=== PATIENT | female | born 1995 | race Caucasian/White ===

== ENCOUNTER 2023-11-28 09:50 | Observation (INO) | payer OTHER, MEDICAID, SELFPAY ==
--- NOTE | ~2023-11-28 | US_ITS ---
EXAMINATION: US renal BI DATE: 11/28/2023 12:01 INDICATION: Upper abdominal pain. . TECHNIQUE: Multiple ultrasound grayscale images of the kidneys were obtained. COMPARISON: None. FINDINGS: The right kidney measures 13.4 x 5.8 x 5.1 cm. The left kidney measures 13.7 x 5.8 x 3.8 cm. The kidn eys demonstrate normal parenchymal echogenicity. There is mild bilateral hydronephrosis. The bladder is normal. IMPRESSION: 1. Mild bilateral hydronephrosis. Reviewed, dictated and finalized at location A.
[2023-11-28 09:37] VITALS: BP 134/71; PULSE 109; RESP 15; TEMP 36.6; O2SAT 100
--- NOTE | 2023-11-28 09:46 | PC.NURSE ---
RN called OB and informed them of pt arrival to ED. Pt taken to OB via wheelchair by tech
[2023-11-28 10:45] VITALS: BMI 39.3
--- NOTE | 2023-11-28 10:45 | OBADM ---
This patient, Anita Brunson, admitted to the OB room [facility] for observation. Patient/family oriented to hospital policies and general routines including ID bracelet, bed and alarms, visiting hours, pain management, procedures, bathroom and other care routines, personal items, smoking policy, room service/diet, and visiting hours. Patient/Family are encouraged to report perceived risks to care and to ask questions if they do not understand what they are told or what they should do.
[2023-11-28 11:14] LABS: Add Urine Microscopic? YES; Appearance Urine Cloudy (Clear); Bacteria Urine 4+ /hpf; Bilirubin Urine Negative (Negative); Blood Urine 3+ (Negative); Color Urine Yellow (Yellow); Glucose Urine UA Negative (Negative); Ketones Urine Trace mg/dL (Negative); Leukocyte Esterase Ur Trace LEU/UL (Negative); Nitrate Urine Negative (Negative); Protein Urine 1+ mg/dL (Negative); RBC Urine >100 /hpf (0-2); Specific Grav Ur 1.019 (1.001-1.035); Squamous Epithelial Cell Urine Moderate /hpf (Few); pH Urine 6.5 (5.0-9.0)
[2023-11-28 11:23] VITALS: BP 116/65; PULSE 94
--- NOTE | 2023-11-28 11:34 | PC.NURSE ---
Dr. Travis notified of patient's arrival on unit with complaints of abdominal pain and cramping. Dr. Travis also notified of urine results. Orders received to order a renal ultrasound and treat UTI with Macrobid.
[2023-11-28] MEDS: NITROFURANTOIN MONOHYD MACROCR 100 MG CAP PO (12:00)
--- NOTE | 2023-11-28 12:25 | PC.NURSE ---
Dr. Travis updated on US results, discharge home with antibiotics
--- NOTE | 2023-12-16 10:11 | P.PNOB_ITS ---
OB - Triage/Final Diagnosis Visit Information Comments/Additional reasons for admission: I have assessed the risk for this patient, Anita Brunson, and determined that she would benefit from observation care. Evaluation Laboratory results: Laboratory Tests 11/28/23 10:20 Urine Color Yellow Urine Appearance Cloudy H Urine pH 6.5 Ur Specific [place] 1.019 Urine Protein 1+ H Urine Glucose (UA) Negative Urine Ketones Trace H Ur Blood (Man) 3+ H Urine Nitrate Negative Urine Bilirubin Negative Urine Urobilinogen 1.0 Leukocyte Esterase Rfl Trace H Urine RBC >100 H Urine WBC 6-10 H Ur Squamous Epith Cells Moderate Urine Bacteria 4+ H Urine Casts 3-5 Final Diagnosis (1) Abdominal pain affecting : Code(s): O26.899 - Other specified related conditions, unspecified trimester; R10.9 - Unspecified abdominal pain Status: Acute
== END 2023-11-28 12:39 | disposition home or self-care (01) ==
PROVIDERS: Admitting Provider Obstetrics & Gynecology; PCP Obstetrics & Gynecology; Visit Provider Obstetrics & Gynecology
DX: O26.892 Other specified pregnancy related conditions, second trimester (principal); R10.9 Unspecified abdominal pain; Z3A.22 22 weeks gestation of pregnancy
CPT/HCPCS: 76775; 81001; 87086; 87088; A9270; G0378; G0379

== ENCOUNTER 2024-02-07 11:19 | Emergency (ER) | payer OTHER, MEDICAID, SELFPAY ==
[2024-02-07 11:28] VITALS: BP 122/75; PULSE 105; RESP 20; TEMP 36.6; O2SAT 100
[2024-02-07 11:38] VITALS: O2SAT 99
[2024-02-07 11:40] VITALS: BP 121/81; PULSE 106; RESP 18; O2SAT 99
--- NOTE | 2024-02-07 11:46 | ED_ITS ---
HPI - Abdominal Pain General Chief Complaint: Abdominal Pain Stated Complaint: lightheaded, R sided abd pain, 33 weeks Time Seen by Provider: 02/07/24 11:35 History of Present Illness HPI narrative: Patient is a 28-year-old female who presents to the ER with abdominal pain. She is approximately 33 weeks and started experiencing right UE mid abdominal a pain yesterday that was sharp. patient reports she also felt nauseated at that time. Last night patient reports she started having contractions every 6 minutes but these only lasted for an hour and has subsided since then. Patient denies any urinary symptoms, her last bowel movement was last night and it was normal for her. Patient reports she has a history of kidney stones during her 1st . She carried her 1st to term and had a vaginal delivery. Patient endorses shortness of breath that increases with standing. Related Data Home Medications Medication Instructions Recorded Confirmed B6 1.7 mg-folic 400 mcg-B12 2.4 cap PO 10/08/23 01/09/24 [id number] oral capsule docosahexaenoic acid 200 mg mg PO 10/08/23 01/09/24 capsule ( DHA) doxylamine succinate 25 mg tablet 25 mg PO QHS PRN 10/08/23 01/09/24 (Unisom (doxylamine)) ondansetron HCl 4 mg tablet 4 mg PO Q8H 10/08/23 01/09/24 Allergies Allergy/AdvReac Type Severity Reaction Status Date / Time No Known Allergies Allergy Verified 01/21/24 14:32 Review of Systems Review of Systems: All systems reviewed & are unremarkable except as noted in HPI and below PMFSH Social History Social History Smoking status: Never smoker Alcohol intake: never Substance use: never Substance use type: does not use Living arrangements: with family Gender identity (if verbalized by the patient): Female Sexual Orientation (if Verbalized by the Patient): Straight or Heterosexual Exam Narrative: GENERAL: Well appearing, well-nourished, non-toxic, in no acute distress. HEAD: Normocephalic, atraumatic. NECK: Supple. No adenopathy, no masses. RESPIRATORY: Airway patent, respirations nonlabored. Clear to auscultation bilaterally, no rales, rhonchi, wheezing. CARDIOVASCULAR: Regular rate and rhythm without murmurs, rubs, or gallops. Peripheral pulses 2+ and equal bilaterally. ABDOMINAL: Soft, nontender, nondistended, no hepatosplenomegaly. Normoactive BS. MUSCULOSKELETAL: Moves all extremities. Strength/ROM intact without gross deformities. SKIN: Warm, dry, normal color. No rashes. NEURO: A&O X3. Speech clear. Cranial nerves II-XII grossly intact. No ataxic movements. PSYCHIATRIC: Appropriate mood and affect. Normal interaction. Course Consultations Consultation #1: Serge Spear NP, advised [facility] Date: 02/07/24 Time: 14:00 Vital Signs Vital signs: Vital Signs Temperature 36.6 C 02/07/24 11:28 Pulse Rate 105 H 02/07/24 11:28 Respiratory Rate 20 02/07/24 11:28 Blood Pressure 122/75 02/07/24 11:28 Pulse Oximetry 100 02/07/24 11:28 Oxygen Delivery Room Air 02/07/24 11:28 Temperature 36.6 C 02/07/24 11:28 Pulse Rate 97 02/07/24 12:30 Respiratory Rate 16 02/07/24 12:30 Blood Pressure 134/68 02/07/24 12:30 Pulse Oximetry 100 02/07/24 12:30 Oxygen Delivery Room Air 02/07/24 11:28 MDM - Abdominal Pain MDM Narrative Medical decision making narrative: Patient is a 28-year-old female who presents to the ER with abdominal pain. She is approximately 33 weeks and started experiencing right UE mid abdominal a pain yesterday that was sharp. patient reports she also felt nauseated at that time. Last night patient reports she started having contractions every 6 minutes but these only lasted for an hour and has subsided since then. Patient denies any urinary symptoms, her last bowel movement was last night and it was normal for her. Patient reports she has a history of kidney stones during her 1st . She carried her 1st to term and had a vaginal delivery. Patient endorses shortness of breath that increases with standing. Labs Ordered: urinalysis, CMP, troponin, CBC, BNP, PTT, INR, COVID Imaging Ordered: EKG Results: patient CBC and CMP results were unremarkable except for some mild dehydration. Her urinalysis indicated a UTI. Pt's heart rate was in the 1 30s-140s. EKG was WNL. Diagnosis: urinary tract infection, dehydration Consults: OBGYN Plan: Patient given 1 L normal saline IV bolus to help treat her dehydration. She will be given a dose of oral antibiotics here and sent home with a prescription for oral antibiotics to treat her UTI. Spoke with patient's OBGYN who advised [facility]. Results shared with patient. She and her significant other verbalized understanding and are in agreement with plan. Differential Diagnosis Differential diagnosis: Likely abdominal pain, calculus of kidney, gastroenteritis and other (COVID, influenza) Lab Data Attestation: I reviewed the patient's lab results. 02/07/24 11:59 02/07/24 11:59 Labs: Lab Results 02/07/24 02/07/24 02/07/24 Range/Units 11:59 11:59 11:59 WBC 8.6 (4.5-10.0) K/mm3 RBC 3.49 L (4.2-5.4) M/mm3 Hgb 10.1 L (12.0-15.0) g/dL Hct 30.0 L (37.0-47.0) % MCV 86.0 (80-100) fl MCH 28.9 (26-34) pg MCHC 33.7 (32-36) g/dl RDW 13.5 (11.5-14.5) % Plt Count 261 (150-375) k/mm3 MPV 11.2 H (7.4-10.4) fl Immature Gran % (Auto) 0.7 H (0-0.5) % Neut % (Auto) 71.2 (45.5-73.1) % Lymph % (Auto) 20.2 (18.3-44.2) % [place] % (Auto) 7.6 (2.6-8.5) % Eos % (Auto) 0.0 (0-4.4) % Baso % (Auto) 0.3 (0.2-1.2) % Lymph # (Auto) 1.74 (0.9-3.2) K/mm3 [place] # (Auto) 0.7 H (0.1-0.6) K/mm3 Eos # (Auto) 0.0 (0-0.3) K/mm3 Baso # (Auto) 0.0 (0.0-0.1) K/mm3 Abs Immat Gran (auto) 0.06 H (0.00-0.031) K/mm3 Absolute Neuts (auto) 6.1 (1.3-6.7) K/mm3 Absolute Nucleated RBC 0.000 (0.0-0.012) K/mm3 Nucleated RBC % 0.0 (0.0-0.2) % PT 13.8 (11.1-14.7) Seconds INR 1.0 APTT 27.4 (22.3-36.8) Seconds Sodium 135 L (137-145) mmol/L Potassium 3.5 (3.4-5.0) mmol/L Chloride 105 (98-107) mmol/L Carbon Dioxide 20 L (22-30) mmol/L Anion Gap 10 (4-12) mmol/L BUN 5 L (7-17) mg/dL Creatinine 0.40 L (0.7-1.0) mg/dL Estim Creat Clear Calc 203 ml/min Estimated GFR > 60 (59 - ) Glucose 109 (65-110) mg/dL Calcium 8.9 (8.4-10.2) mg/dL Total Bilirubin 0.5 (0.2-1.3) mg/dL AST 16 (14-36) U/L ALT 10 (6-35) U/L Alkaline Phosphatase 102 (38-126) U/L Troponin I < 0.012 (0.000-0.034) ng/mL NT-Pro-B Natriuret Pep < 20 Cancelled (19.9-100) pg/mL Total Protein 8.0 (6.3-8.2) g/dL Albumin 3.8 (3.5-5.1) g/dL Lipase 69 Cancelled (23-300) U/L Urine Color (Yellow) Urine Appearance (Clear) Urine pH (5.0-9.0) Ur Specific [place] (1.001-1.035) Urine Protein (Negative) mg/dL Urine Glucose (UA) (Negative) mg/dL Urine Ketones (Negative) mg/dL Ur Blood (Man) (Negative) Urine Nitrate (Negative) Urine Bilirubin (Negative) Urine Urobilinogen (<2.0) mg/dL Leukocyte Esterase Rfl (Negative) LALO/UL Urine RBC (0-2) /hpf Urine WBC (0-3) /hpf Ur Squamous Epith Cells (Few) /hpf Urine Bacteria /hpf Urine Casts Influenza A (RT-PCR) Negative (Negative) Influenza B (RT-PCR) Negative (Negative) RSV (RT-PCR) Negative (Negative) SARS-CoV-2 RNA (RT-PCR) Negative (Negative) 02/07/24 Range/Units 13:02 WBC (4.5-10.0) K/mm3 RBC (4.2-5.4) M/mm3 Hgb (12.0-15.0) g/dL Hct (37.0-47.0) % MCV (80-100) fl MCH (26-34) pg MCHC (32-36) g/dl RDW (11.5-14.5) % Plt Count (150-375) k/mm3 MPV (7.4-10.4) fl Immature Gran % (Auto) (0-0.5) % Neut % (Auto) (45.5-73.1) % Lymph % (Auto) (18.3-44.2) % [place] % (Auto) (2.6-8.5) % Eos % (Auto) (0-4.4) % Baso % (Auto) (0.2-1.2) % Lymph # (Auto) (0.9-3.2) K/mm3 [place] # (Auto) (0.1-0.6) K/mm3 Eos # (Auto) (0-0.3) K/mm3 Baso # (Auto) (0.0-0.1) K/mm3 Abs Immat Gran (auto) (0.00-0.031) K/mm3 Absolute Neuts (auto) (1.3-6.7) K/mm3 Absolute Nucleated RBC (0.0-0.012) K/mm3 Nucleated RBC % (0.0-0.2) % PT (11.1-14.7) Seconds INR APTT (22.3-36.8) Seconds Sodium (137-145) mmol/L Potassium (3.4-5.0) mmol/L Chloride (98-107) mmol/L Carbon Dioxide (22-30) mmol/L Anion Gap (4-12) mmol/L BUN (7-17) mg/dL Creatinine (0.7-1.0) mg/dL Estim Creat Clear Calc ml/min Estimated GFR (59 - ) Glucose (65-110) mg/dL Calcium (8.4-10.2) mg/dL Total Bilirubin (0.2-1.3) mg/dL AST (14-36) U/L ALT (6-35) U/L Alkaline Phosphatase (38-126) U/L Troponin I (0.000-0.034) ng/mL NT-Pro-B Natriuret Pep (19.9-100) pg/mL Total Protein (6.3-8.2) g/dL Albumin (3.5-5.1) g/dL Lipase (23-300) U/L Urine Color Yellow (Yellow) Urine Appearance Cloudy H (Clear) Urine pH 6.5 (5.0-9.0) Ur Specific [place] 1.015 (1.001-1.035) Urine Protein Negative (Negative) mg/dL Urine Glucose (UA) Negative (Negative) mg/dL Urine Ketones 1+ H (Negative) mg/dL Ur Blood (Man) Negative (Negative) Urine Nitrate Negative (Negative) Urine Bilirubin Negative (Negative) Urine Urobilinogen 0.2 (<2.0) mg/dL Leukocyte Esterase Rfl 1+ H (Negative) LALO/UL Urine RBC 3-5 H (0-2) /hpf Urine WBC 11-20 H (0-3) /hpf Ur Squamous Epith Cells Few (Few) /hpf Urine Bacteria 4+ H /hpf Urine Casts 0-2 Influenza A (RT-PCR) (Negative) Influenza B (RT-PCR) (Negative) RSV (RT-PCR) (Negative) SARS-CoV-2 RNA (RT-PCR) (Negative) Discharge Plan Discharge Clinical Impression: Abdominal pain affecting , Urinary tract infection Patient Disposition: Home, Self-Care Condition: Stable Instructions: Antibiotic Form, Abdominal Pain (ED), Urinary Tract Infection in (ED) Prescriptions: No Action [id number] 1.7 mg-400 mcg- 2.4 mcg capsule PO Unisom (doxylamine) 25 mg tablet 25 mg PO QHS PRN ondansetron HCl 4 mg tablet 4 mg PO Q8H DHA 200 mg capsule PO Follow-up/Referrals: Berto Travis MD [Primary Care Provider] -
--- NOTE | 2024-02-07 11:54 | ECG_ITS ---
Test Date: 2024-02-07 12:10:14 Measurements Intervals [place] Rate: 91 P: 22 PA: 172 QRS: 23 QRSD: 93 T: 11 QT: 375 QTc: 462 Interpretive Statements SINUS RHYTHM BORDERLINE ST-T WAVE ABNORMALITY- ANTERIOR LEADS BORDERLINE ECG No previous ECG available for comparison Electronically Signed On 02-07-2024 12:18:13 TECHNICAL SERVICES MANAGER by Dick Bangura D.O.
[2024-02-07] MEDS: SODIUM CHLORIDE 0.9% IV 1,000 ML 999 ML IV CONT (11:57)
[2024-02-07 12:12] LABS: Basophils Percent Auto 0.3 % (0.2-1.2); Hemoglobin 10.1 g/dL (12.0-15.0); Immature Granulocyte Absolute 0.06 K/mm3 (0.00-0.031); Immature Granulocyte Percent A 0.7 % (0-0.5); Lymphocytes Absolute Auto 1.74 K/mm3 (0.9-3.2); Lymphocytes Percent Auto 20.2 % (18.3-44.2); Mean Corpuscular HGB Conc 33.7 g/dl (32-36); Mean Corpuscular Hemoglobin 28.9 pg (26-34); Mean Platelet Volume 11.2 fl (7.4-10.4); Monocytes Absolute Auto 0.7 K/mm3 (0.1-0.6); Monocytes Percent Auto 7.6 % (2.6-8.5); Neutrophils Absolute Auto 6.1 K/mm3 (1.3-6.7); Neutrophils Percent Auto 71.2 % (45.5-73.1); Platelet Count Result 261 k/mm3 (150-375); Red Blood Count 3.49 M/mm3 (4.2-5.4); Red Cell Distribution Width 13.5 % (11.5-14.5); White Blood Count 8.6 K/mm3 (4.5-10.0)
[2024-02-07 12:27] LABS: Partial Thromboplastin Time 27.4 Seconds (22.3-36.8); Prothrombin Time 13.8 Seconds (11.1-14.7)
[2024-02-07 12:30] VITALS: BP 134/68; PULSE 97; RESP 16; O2SAT 100
[2024-02-07 12:31] LABS: Alanine Aminotransferase 10 U/L (6-35); Albumin Level 3.8 g/dL (3.5-5.1); Alkaline Phosphatase 102 U/L (38-126); Anion Gap 10 mmol/L (4-12); Aspartate Amino Transferase 16 U/L (14-36); Bilirubin,Total 0.5 mg/dL (0.2-1.3); Blood Urea Nitrogen 5 mg/dL (7-17); Calcium 8.9 mg/dL (8.4-10.2); Carbon Dioxide 20 mmol/L (22-30); Chloride 105 mmol/L (98-107); Estimated CRCL calculation 203 ml/min; Estimated Glomerular Filt Rate > 60; Glucose 109 mg/dL (65-110); Lipase 69 U/L (23-300); Potassium 3.5 mmol/L (3.4-5.0); Sodium 135 mmol/L (137-145)
[2024-02-07 12:42] LABS: NT Pro B Type Natriuretic Pept < 20 pg/mL (19.9-100); Troponin I < 0.012 ng/mL (0.000-0.034)
[2024-02-07 12:49] LABS: Influenza A QL RT-PCR Negative (Negative); Influenza B QL RT-PCR Negative (Negative); RSV RNA, RT-PCR Negative (Negative); SARS-CoV-2 RNA PCR Negative (Negative)
[2024-02-07 13:16] LABS: Add Urine Microscopic? YES; Appearance Urine Cloudy (Clear); Bacteria Urine 4+ /hpf; Bilirubin Urine Negative (Negative); Blood Urine Negative (Negative); Color Urine Yellow (Yellow); Glucose Urine UA Negative (Negative); Ketones Urine 1+ mg/dL (Negative); Leukocyte Esterase Ur 1+ LEU/UL (Negative); Nitrate Urine Negative (Negative); Non Pathogenic Casts 0-2; Protein Urine Negative (Negative); Specific Grav Ur 1.015 (1.001-1.035); Squamous Epithelial Cell Urine Few /hpf (Few); Urobilinogen Urine 0.2 mg/dL (<2.0); pH Urine 6.5 (5.0-9.0)
[2024-02-07] MEDS: NITROFURANTOIN MONOHYD MACROCR 100 MG CAP PO (14:22)
--- NOTE | 2024-02-07 14:27 | PC.NURSE ---
Arrived in Ed department from OB for monitoring right as ED was ready to discharge pt. Pt allowed to void and then taken to recliner for NST.
[2024-02-07 14:29] VITALS: BP 114/74; PULSE 85; RESP 18; O2SAT 100
[2024-02-07 15:00] VITALS: BP 117/64; PULSE 97
== END 2024-02-07 14:31 | disposition home or self-care (01) ==
PROVIDERS: Emergency Provider Registered Nurse; PCP Obstetrics & Gynecology
DX: O23.43 Unspecified infection of urinary tract in pregnancy, third trimester (principal); N39.0 Urinary tract infection, site not specified; Z3A.33 33 weeks gestation of pregnancy; R10.9 Unspecified abdominal pain; Z20.822 Contact with and (suspected) exposure to COVID-19
CPT/HCPCS: 36415; 80053; 81001; 83690; 83880; 84484; 85025; 85610; 85730; 87086; 87637; 93005; 96360; 99284; A9270; J7030

== ENCOUNTER 2024-02-18 15:38 | Outpatient (CLI) | payer OTHER, MEDICAID, SELFPAY ==
[2024-02-18 15:53] LABS: Basophils Absolute Auto 0.1 K/mm3 (0.0-0.1); Basophils Percent Auto 0.5 % (0.2-1.2); Hematocrit 30.9 % (37.0-47.0); Immature Granulocyte Absolute 0.13 K/mm3 (0.00-0.031); Immature Granulocyte Percent A 1.4 % (0-0.5); Lymphocytes Absolute Auto 1.98 K/mm3 (0.9-3.2); Lymphocytes Percent Auto 21.1 % (18.3-44.2); Mean Corpuscular HGB Conc 32.4 g/dl (32-36); Mean Corpuscular Hemoglobin 28.2 pg (26-34); Mean Platelet Volume 10.6 fl (7.4-10.4); Monocytes Absolute Auto 1.1 K/mm3 (0.1-0.6); Monocytes Percent Auto 11.5 % (2.6-8.5); Neutrophils Absolute Auto 6.2 K/mm3 (1.3-6.7); Neutrophils Percent Auto 65.5 % (45.5-73.1); Platelet Count Result 245 k/mm3 (150-375); Red Blood Count 3.55 M/mm3 (4.2-5.4); Red Cell Distribution Width 14.3 % (11.5-14.5); White Blood Count 9.4 K/mm3 (4.5-10.0)
[2024-02-18 16:44] LABS: HIV 1/2 Ab P24 Ag Result Negative (Negative)
[2024-02-19 09:29] LABS: Rapid Plasma Reagin Non-Reactive (NonReactive)
== END 2024-02-18 15:39 | disposition home or self-care (01) ==
LOC: ANHLAB 15:40
PROVIDERS: PCP Family Medicine; Visit Provider Obstetrics & Gynecology
DX: Z34.90 Encounter for supervision of normal pregnancy, unspecified, unspecified trimester (principal)
CPT/HCPCS: 36415; 85025; 86592; 86703; G0432

== ENCOUNTER 2024-04-02 15:27 | Inpatient (IN) | payer OTHER, SELFPAY ==
[2024-04-02] VITALS (62 sets, daily range): BP systolic 119–150; BP diastolic 49–98; PULSE 94–136; RESP 18; TEMP 36.4–37.2; O2SAT 86–100; BMI 43.9
--- NOTE | 2024-04-02 16:54 | LDADM ---
This patient, Anita Brunson, was admitted to Labor/Delivery/Recovery 105 on 04/02/24 at 15:27. Plans for labor, pain management and were discussed with patient. Patient/family oriented to hospital policies and general routines including ID bracelet, bed and alarms, visiting hours, pain management, procedures, bathroom and other care routines, personal items, smoking policy, room service/diet and guest tray routines, infant security routines, and visiting hours. Patient/Family are encouraged to report perceived risks to care and to ask questions if they do not understand what they are told or what they should do. See OBIX for further documentation.
[2024-04-02 17:19] LABS: Basophils Percent Auto 0.3 % (0.2-1.2); Hemoglobin 10.7 g/dL (12.0-15.0); Immature Granulocyte Absolute 0.07 K/mm3 (0.00-0.031); Immature Granulocyte Percent A 0.7 % (0-0.5); Lymphocytes Absolute Auto 1.76 K/mm3 (0.9-3.2); Lymphocytes Percent Auto 16.9 % (18.3-44.2); Mean Corpuscular HGB Conc 33.4 g/dl (32-36); Mean Corpuscular Volume 83.8 fl (80-100); Mean Platelet Volume 11.2 fl (7.4-10.4); Monocytes Absolute Auto 0.8 K/mm3 (0.1-0.6); Monocytes Percent Auto 8.1 % (2.6-8.5); Neutrophils Absolute Auto 7.7 K/mm3 (1.3-6.7); Platelet Count Result 245 k/mm3 (150-375); Red Blood Count 3.82 M/mm3 (4.2-5.4); Red Cell Distribution Width 14.9 % (11.5-14.5); White Blood Count 10.4 K/mm3 (4.5-10.0)
[2024-04-02] MEDS: OXYTOCIN 30 UNITS/NS 500 ML 30 UNITS/500 ML BAG IV CONT (17:30)
[2024-04-02] MEDS: LACTATED RINGERS 1,000 ML 125 ML IV CONT ×2 (17:30→21:33)
[2024-04-02 17:34] LABS: Alanine Aminotransferase 9 U/L (6-35); Albumin Level 3.5 g/dL (3.5-5.1); Alkaline Phosphatase 152 U/L (38-126); Anion Gap 9 mmol/L (4-12); Aspartate Amino Transferase 15 U/L (14-36); Bilirubin,Total 0.4 mg/dL (0.2-1.3); Blood Urea Nitrogen 8 mg/dL (7-17); Calcium 9.2 mg/dL (8.4-10.2); Carbon Dioxide 20 mmol/L (22-30); Chloride 107 mmol/L (98-107); Estimated CRCL calculation 178 ml/min; Estimated Glomerular Filt Rate > 60; Glucose 86 mg/dL (65-110); Potassium 3.9 mmol/L (3.4-5.0); Sodium 136 mmol/L (137-145); Uric Acid 4.1 mg/dL (2.5-7.5)
[2024-04-02 18:27] LABS: HIV 1/2 Ab P24 Ag Result Negative (Negative)
--- NOTE | 2024-04-02 19:02 | PM.IMHP ---
H&P: HPI History of Present Illness Date/Time: 04/02/24 19:02 Chief Complaint: Contractions Narrative: She was having increase contractions since 3pm. Cervical exam in the office was 3-4. She had irregular contractions on L and D which she was sent to for her surveillance testing. Initially blood pressures were elevated. She denied PIH symptoms. Cervical exam 5/70/-2. She had SROM with checking at 1650. She was admitted in active labor. PNC significant for BMI >40 which she was getting surveillance testing for. GBS neg. Review of Systems Review of Systems: All systems reviewed & are unremarkable except as noted in HPI and below Constitutional: Constitutional: Reports no additional constitutional complaints and Denies headache(s) Eyes: Eyes: Denies spots in vision ENT: Reports system reviewed and no additional complaints, except as documented and Denies headache(s) Cardiovascular: Cardiovascular: Denies chest pain and Denies dyspnea Respiratory: Respiratory: Denies dyspnea Gastrointestinal: Gastrointestinal: Reports no additional gastrointestinal complaints Genitourinary: Genitourinary: Reports amenorrhea Musculoskeletal: Musculoskeletal: Reports no additional musculoskeletal complaints Integumentary/Breasts: Skin/Breast: Denies breast mass and Denies rash Neurologic: Denies headache(s) Psychiatric: Psychiatric: Reports no additional psychiatric complaints PMFSH Past Medical History Medical History Migraines, neuralgic IUP (intrauterine ), incidental Morbid obesity Renal calculi Depression Anxiety Family History Family History Father Lung cancer Grandparent Lung cancer Social History Social History Smoking status: Former smoker Tobacco type: e-cigarettes/vaping Alcohol intake: never Substance use: never Substance use type: does not use Do You Feel Safe in your Home?: Yes Lack of Transportation: No Lack of Food: Never True Current Housing: I Have Housing Concerned About Future Housing: No Difficulty Paying Gas/Electric Bills: No Difficulty Paying for Meds: No Currently Unemployed: No Education: High School Diploma/GED Difficulty w/ Childcare or Family Care: No Living arrangements: with family Gender identity (if verbalized by the patient): Female Sexual Orientation (if Verbalized by the Patient): Straight or Heterosexual Spiritual care concerns: No Meds Home Medications and Allergies Home Medications ?Medication ?Instructions ?Recorded ?Confirmed ?Type docosahexaenoic acid 200 mg 200 mg PO DAILY 10/08/23 04/02/24 History capsule ( DHA) Allergies Allergy/AdvReac Type Severity Reaction Status Date / Time No Known Allergies Allergy Verified 04/02/24 17:34 Vital Signs Vital Signs - 24 hr 04/02/24 16:53 04/02/24 17:13 04/02/24 17:30 Temperature 98.9 F Pulse Rate 103 H 106 H Respiratory Rate 18 Blood Pressure 123/77 124/80 Oxygen Delivery Room Air 04/02/24 18:00 04/02/24 18:15 04/02/24 18:30 Temperature 97.6 F Pulse Rate 105 H 117 H Respiratory Rate Blood Pressure 126/79 130/87 Oxygen Delivery 04/02/24 18:31 04/02/24 19:00 Temperature Pulse Rate 107 H Respiratory Rate Blood Pressure 146/81 H Oxygen Delivery Room Air Exam Const: General: no acute distress Eyes: General: appearance normal, both eyes and all related structures Resp: Effort & Inspection: normal respiratory effort Cardio: Rate: regular rate GI: Other: Gravid no fundal tenderness no right upper quadrant pain Skin: General skin exam: no rashes or lesions noted Neuro: Cognition (Neuro): normal cognition Extrem: General: normal to inspection Psych: Mental Status: mental status grossly normal H&P: Results Labs Labs: Short CBC 04/02/24 Range/Units 16:52 WBC 10.4 H (4.5-10.0) K/mm3 Hgb 10.7 L (12.0-15.0) g/dL Hct 32.0 L (37.0-47.0) % Plt Count 245 (150-375) k/mm3 BMP 04/02/24 16:52 Sodium 136 L Potassium 3.9 Chloride 107 Carbon Dioxide 20 L BUN 8 Creatinine 0.49 L Glucose 86 Calcium 9.2 Liver Function 04/02/24 Range/Units 16:52 Total Bilirubin 0.4 (0.2-1.3) mg/dL AST 15 (14-36) U/L ALT 9 (6-35) U/L Alkaline Phosphatase 152 H (38-126) U/L Albumin 3.5 (3.5-5.1) g/dL Assessment and Plan Assessment and plan (1) Active labor: Status: Acute Assessment and Plan: 1. Admit 2. Expectant management, pitocin augmentation if needed.
[2024-04-02 19:55] LABS: Rapid Plasma Reagin Non-Reactive (NonReactive)
--- NOTE | 2024-04-02 20:32 | WPDANESEPP ---
Anes - Eval Pre Procedure Procedure: labor epidural Date/Time: 04/02/24 20:32 Surgeon: justin Preop Diagnosis: pain during labor Pre Op Diagnosis: IOL Patient Data Age: 28 Gender: F Height: 1.63 m Weight: 116 kg Last Vital Signs Temp 36.4 C 04/02/24 20:00 Pulse 114 H 04/02/24 20:30 Resp 18 04/02/24 17:13 BP 143/92 H 04/02/24 20:30 O2 Del Method Room Air 04/02/24 18:31 Allergies Allergy/AdvReac Type Severity Reaction Status Date / Time No Known Allergies Allergy Verified 04/02/24 17:34 Home Medications ?Medication ?Instructions ?Recorded ?Confirmed ?Type docosahexaenoic acid 200 mg 200 mg PO DAILY 10/08/23 04/02/24 History capsule ( DHA) Laboratory Tests 04/02/24 04/02/24 16:52 16:52 WBC 10.4 H K/mm3 (4.5-10.0) RBC 3.82 L M/mm3 (4.2-5.4) Hgb 10.7 L g/dL (12.0-15.0) Hct 32.0 L % (37.0-47.0) MCV 83.8 fl (80-100) MCH 28.0 pg (26-34) MCHC 33.4 g/dl (32-36) RDW 14.9 H % (11.5-14.5) Plt Count 245 k/mm3 (150-375) MPV 11.2 H fl (7.4-10.4) Immature Gran % (Auto) 0.7 H % (0-0.5) Neut % (Auto) 74.0 H % (45.5-73.1) Lymph % (Auto) 16.9 L % (18.3-44.2) [place] % (Auto) 8.1 % (2.6-8.5) Eos % (Auto) 0.0 % (0-4.4) Baso % (Auto) 0.3 % (0.2-1.2) Lymph # (Auto) 1.76 K/mm3 (0.9-3.2) [place] # (Auto) 0.8 H K/mm3 (0.1-0.6) Eos # (Auto) 0.0 K/mm3 (0-0.3) Baso # (Auto) 0.0 K/mm3 (0.0-0.1) Abs Immat Gran (auto) 0.07 H K/mm3 (0.00-0.031) Absolute Neuts (auto) 7.7 H K/mm3 (1.3-6.7) Absolute Nucleated RBC 0.000 K/mm3 (0.0-0.012) Nucleated RBC % 0.0 % (0.0-0.2) Sodium 136 L mmol/L (137-145) Potassium 3.9 mmol/L (3.4-5.0) Chloride 107 mmol/L (98-107) Carbon Dioxide 20 L mmol/L (22-30) Anion Gap 9 mmol/L (4-12) BUN 8 mg/dL (7-17) Creatinine 0.49 L mg/dL (0.7-1.0) Estim Creat Clear Calc 178 ml/min Estimated GFR > 60 (59 - ) Glucose 86 mg/dL (65-110) Uric Acid Cancelled 4.1 mg/dL (2.5-7.5) Calcium 9.2 mg/dL (8.4-10.2) Total Bilirubin 0.4 mg/dL (0.2-1.3) AST 15 U/L (14-36) ALT 9 U/L (6-35) Alkaline Phosphatase 152 H U/L (38-126) Total Protein 7.0 g/dL (6.3-8.2) Albumin 3.5 g/dL (3.5-5.1) RPR Non-reactive (NonReactive) HIV 1&2 Ab/P24 Ag 4thGn Negative (Negative) Blood Type A Positive Antibody Screen Negative Patient hx anesthesia problems: none Family hx anesthesia problems: none Results Review: All pre-operative results and documents have been reviewed as part of the pre-operative evaluation. [facility] Past Medical History Medical History (Updated 04/02/24 @ 20:33 by Jaimee Ferreira CRNA) Migraines, neuralgic IUP (intrauterine ), incidental Morbid obesity Renal calculi Depression Anxiety Family History Family History Father Lung cancer Grandparent Lung cancer Social History Social History (Reviewed 04/02/24 @ 14:52 by Angelina Baca [facility]) Smoking status: Former smoker Tobacco type: e-cigarettes/vaping Alcohol intake: never Substance use: never Substance use type: does not use Do You Feel Safe in your Home?: Yes Lack of Transportation: No Lack of Food: Never True Current Housing: I Have Housing Concerned About Future Housing: No Difficulty Paying Gas/Electric Bills: No Difficulty Paying for Meds: No Currently Unemployed: No Education: High School Diploma/GED Difficulty w/ Childcare or Family Care: No Living arrangements: with family Gender identity (if verbalized by the patient): Female Sexual Orientation (if Verbalized by the Patient): Straight or Heterosexual Spiritual care concerns: No Exam Day of Procedure 04/02/24 20:32
[2024-04-03] VITALS (10 sets, daily range): BP systolic 122–142; BP diastolic 64–98; PULSE 88–122; RESP 16–18; TEMP 36.2–37; O2SAT 99–100
--- NOTE | 2024-04-03 00:13 | P.PCNOB_ITS ---
OB - Vaginal Delivery Note Procedure Delivery date: 04/03/24 Delivery augmentation: Pitocin Delivery monitor: External FHT Route of delivery: Episiotomy description: None Specimen: No Quantitative Blood Loss (ml): 150 Anesthesia type: Epidural Disposition: Floor Complications: No immediate complications Narrative: She was admitted in active labor. SROM occurred while checking at time of admission. Light meconium noted. She had pitocin augmentation. She had epidural placed on request. She progressed to complete. She delivered male infant over intact perineum. Nose and mouth suctioned at perineum. Two loose nuchal cords manually reduced. The shoulders and the rest of infant delivered with gentle traction. vigorously crying and placed on maternal abdomen. Peds present. Cord blood and gases obtained. Pitocin started. Placenta delivered spontaneously and intact. Patient tolerated procedure well. [facility] [place] Baby Date of : 04/03/24 Time of : 11:58 Gestational Age by Date: 40 Infant gender: Male Weight (pounds): 9 Weight (ounces): 4 presentation: vertex position: Right Occiput Anterior Placenta delivery description: Spontaneous Cord Vessel Description: 3 Vessels, Nuchal Cord (x2), Loose and Reduced (manually) score one minute: 8 score five minutes: 8
[2024-04-03] MEDS: OXYTOCIN 30 UNITS/NS 500 ML 30 UNITS/500 ML BAG 125 UNITS IV CONT (00:33)
[2024-04-03] MEDS: WITCH HAZEL 40 PADS 1 PAD TOPICAL (00:54)
[2024-04-03] MEDS: BENZOCAINE 20% AER SPR (*SP) 56 GM CAN 1 SPRAY TOPICAL (00:54)
[2024-04-03] MEDS: ACETAMINOPHEN 325 MG TABLET 650 MG PO ×2 (03:40→12:18)
[2024-04-03] MEDS: IBUPROFEN 600 MG TABLET PO ×3 (03:40→18:48)
[2024-04-03] MEDS: MULTIVIT/MIN/PREN/FOL AC/IRON TABLET 1 TAB PO (08:07)
--- NOTE | 2024-04-03 09:00 | PC.NURSE ---
Introductions were made, then consulted with patient to assess needs related to .Mother led the conversation with her?plans to feed?her infant and the?experience so far. She plans to exclusively breastfeed and has difficulty waking for feeds from time to time. Encouraged understanding of the benefits of skin to skin, stimulating with massage touch, changing positions to encourage wakefulness, how to watch for early feeding cues, responsive feeding, feeding on demand (aiming for 8-12 times in 24 hours, about every 2-3 hours), milk production, building/maintaining a milk supply, duration of feeding, signs of adequate intake/output and how to record on the feeding sheet. Mother works well with her infant. Infant was being taken from mother at this time for a circumcision. Mother will call for assistance once is returned to room. Parents voiced understanding of information and will call if there is a request for assistance. Reported to the Primary RN.
--- NOTE | 2024-04-03 09:13 | PM.OBPNVD ---
OB - PN: Subj Subjective Date/time seen: 04/03/24 09:13 Patient comments: pain well controlled, tolerating diet and other (Decreasing lochia.) baby status: doing well OB - PN: Obj Data Labs 04/02/24 16:52 04/02/24 16:52 Labs: Laboratory Results - last 24 hr 04/02/24 04/02/24 16:52 16:52 WBC 10.4 H RBC 3.82 L Hgb 10.7 L Hct 32.0 L MCV 83.8 MCH 28.0 MCHC 33.4 RDW 14.9 H Plt Count 245 MPV 11.2 H Immature Gran % (Auto) 0.7 H Neut % (Auto) 74.0 H Lymph % (Auto) 16.9 L [place] % (Auto) 8.1 Eos % (Auto) 0.0 Baso % (Auto) 0.3 Lymph # (Auto) 1.76 [place] # (Auto) 0.8 H Eos # (Auto) 0.0 Baso # (Auto) 0.0 Abs Immat Gran (auto) 0.07 H Absolute Neuts (auto) 7.7 H Absolute Nucleated RBC 0.000 Nucleated RBC % 0.0 Sodium 136 L Potassium 3.9 Chloride 107 Carbon Dioxide 20 L Anion Gap 9 BUN 8 Creatinine 0.49 L Estim Creat Clear Calc 178 Estimated GFR > 60 Glucose 86 Uric Acid Cancelled 4.1 Calcium 9.2 Total Bilirubin 0.4 AST 15 ALT 9 Alkaline Phosphatase 152 H Total Protein 7.0 Albumin 3.5 RPR Non-reactive HIV 1&2 Ab/P24 Ag 4thGn Negative Blood Type A Positive Antibody Screen Negative OB - PN A/P Plan day: 1 Plan: routine care Comments: Patient doing well. Time Spent With Patient Time: Total time spent is greater than 50% in coordination of care (as documented) at patient's floor/unit and/or counseling patient: Exam Psych: Affect: normal affect Other: Abd: fundus firm below umbilicus, nontender Perineum: healing Ext: nontender
--- NOTE | 2024-04-03 10:00 | PC.NURSE ---
Checked in with mother to assist with feeding. Infant remains sleepy and will not wake for feeding at this time. Mother will do skin to skin and watch for early feeding cues. Mother will call this RN to assist with feeding if needed.
--- NOTE | 2024-04-03 10:29 | WPDANLDPN2 ---
Anes-Prog Note L&D Date/Time: 04/03/24 10:29 Comfortable throughout: labor and delivery Neuraxial method: epidural Epidural/Spinal procedure site: clean & non-tender Neuro status: Neuro function grossly intact. Cardiovascular status: normal Respiratory status: normal Airway patency: baseline Mental status: baseline Post-Op hydration status: normal Vital Signs: Last Vital Signs Temp 36.2 C L 04/03/24 08:10 Pulse 88 04/03/24 08:10 Resp 16 04/03/24 08:10 BP 122/72 04/03/24 08:10 Pulse Ox 99 04/03/24 08:10 O2 Del Method Room Air 04/03/24 02:45 Pain score (VAS): 0 I/O: Intake & Output 04/02/24 04/03/24 04/03/24 23:59 07:59 15:59 Intake Total 1000 Output Total 150 Balance 1000 -150 Post-procedural complaints: none Patient feedback: Patient satisfied with anesthetic care.
--- NOTE | 2024-04-03 14:30 | PC.NURSE ---
Upon entering room, mother states that infant has not had a feeding since 7:30 a.m this morning. Discussed with mother that due to the extended time that infant has gone without feeding and the difficulty to wake , this RN would be checking infants blood sugar. Blood sugar was taken and resulted at 46. Discussed with mother that intervention is needed and blood sugar should be at least 50 or greater which would result in giving glucose gel and supplementation. Mother agrees with POC. was then taken to the nursery and given 2ml glucose gel + 20cc of Enfamil formula. tolerated this feeding well. then returned to mother and mother aware that we will be rechecking infants blood sugar in 30 minutes. Additionally, reiterated with mother that should be feeding every 2-3 hours (on demand) and if she is unable to wake infant for feedings she should call RN or Primary RN for assistance. Mother states understanding.
[2024-04-04] MEDS: ACETAMINOPHEN 325 MG TABLET 650 MG PO ×2 (00:46→11:00)
[2024-04-04] MEDS: IBUPROFEN 600 MG TABLET PO ×2 (00:46→11:00)
[2024-04-04 04:52] VITALS: BP 126/76
[2024-04-04 04:56] LABS: Hematocrit 26.6 % (37.0-47.0); Hemoglobin 8.5 g/dL (12.0-15.0)
[2024-04-04 08:05] VITALS: BP 123/86; PULSE 97; RESP 20; TEMP 36.7; O2SAT 98
--- NOTE | 2024-04-04 08:19 | P.PNOB_ITS ---
OB - PN: Subj Subjective Date/time seen: 04/04/24 09:04 Narrative: PPD#2 Anita reports doing well today. 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 Her pain is controlled. She is tolerating regular diet, voiding, passing gas, and ambulating without issues. She is pumping. She would like to go home today. OB - PN: Obj Data Labs 04/04/24 04:16 04/02/24 16:52 OB - PN A/P Assessment and Plan (1) Vaginal delivery: Code(s): O80 - Encounter for full-term uncomplicated delivery Status: Acute Plan day: 2 Plan: routine care and discharge home Comments: - PO pain meds - Regular diet - Ambulation and hydration encouraged - Continue putting baby to breast q2-3hr - Venofer 500mg IV once - Pelvic rest; take meds as prescribed - ER return precautions: fever, n/v/abd pain, bleeding, HTN Time Spent With Patient Time: Total time spent is greater than 50% in coordination of care (as documented) at patient's floor/unit and/or counseling patient: Review of Systems 2 Constitutional: Constitutional: Denies chills, Denies fever(s) and Denies headache(s) Eyes: Eyes: Denies change in vision ENT: Denies dizziness and Denies headache(s) Cardiovascular: Cardiovascular: Denies chest pain, Denies palpitations and Denies dyspnea Respiratory: Respiratory: Denies cough and Denies dyspnea Gastrointestinal: Gastrointestinal: Denies nausea and Denies vomiting Neurologic: Denies dizziness and Denies headache(s) Endocrine: Endocrine: Denies palpitations Exam 2 Const: General: cooperative, comfortable and no acute distress O rientation/consciousness: patient oriented x3 Resp: Effort & Inspection: normal respiratory effort Auscultation: clear to auscultation bilaterally Cardio: Rate: regular rate GI: Inspection: non-distended GI Palp: No abdominal tenderness and Yes Soft to palpation Auscultation: normal bowel sounds : Other: fundus firm Skin: General skin exam: normal color Neuro: General: patient oriented x3 Extrem: General: normal to inspection Psych: Appearance: grossly normal Affect: normal affect Attitude: c ooperative
--- NOTE | 2024-04-04 09:36 | PC.NURSE ---
Checked in with patient to assist needs related to and see how feeding went overnight. Patient states that bottles were given overnight r/t blood glucose levels. Pumping was not initiated overnight. Patient states that she would like to pump and continue attempting to place to breast. Reiterated the importance of pumping when bottles are given in place of and/or attempts were poor. Patient states understanding. Mom[employer] breastpump brought from home. Instructions given on cleaning, care, usage, that there should be no pain, pumping schedule for milk production, collection, and storage of human milk. Patient was assessed for correct placement, flange size (24mm), to pump for comfort and nipple stretching/stimulation for adequate milk production every 3 hours (8 times in 24 hours) 1-2 times at night. Parents are encouraged to record the pumping schedule on the feeding sheet.?Mother voiced understanding of the education. Reported to the Primary RN.
--- NOTE | 2024-04-04 10:25 | PM.OBDSVD ---
DS: Admitting Diagnosis Discharge Date 04/04/23 <Berto Travis MD - Last Filed: 04/07/24 16:20> Admitting Diagnosis Labor <Berto Travis MD - Last Filed: 04/07/24 16:20> DS: Discharge Diagnosis Discharge Diagnosis (1) Vaginal delivery: Code(s): O80 - Encounter for full-term uncomplicated delivery <Berto Travis MD - Last Filed: 04/07/24 16:20> Status: Acute <Berto Travis MD - Last Filed: 04/07/24 16:20> OB - DS: Summary Hospital Course Hospital Course: She was admitted for active labor. She had an uncomplicated vaginal delivery. She and baby did well . Discharged to home on day 2. <Berto Travis MD - Last Filed: 04/07/24 16:20> OB Procedures : Ultrasound <Berto Travis MD - Last Filed: 04/07/24 16:20> OB Procedures Intrapartum: Spontaneous Vag Delivery <Berto Travis MD - Last Filed: 04/07/24 16:20> OB Procedures: : None <Berto Travis MD - Last Filed: 04/07/24 16:20> Peripartum Data Infant Delivery Method: Natural Vaginal <Berto Travis MD - Last Filed: 04/07/24 16:20> Episiotomy description: None <Berto Travis MD - Last Filed: 04/07/24 16:20> complications: none <Berto Travis MD - Last Filed: 04/07/24 16:20> other (venofer 500mg IV once) <Tanya Mckeon MD - Last Filed: 04/04/24 10:27> [place] 1: Gender: Male <Tanya Mckeon MD - Last Filed: 04/04/24 10:27> Disposition of : home <Tanya Mckeon MD - Last Filed: 04/04/24 10:27> Status at Discharge Functional status at discharge: independent ambulation <Berto Travis MD - Last Filed: 04/07/24 16:20> Time Spent with Patient Time attestation: Total time spent providing and/or coordinating discharge services: <Berto Travis MD - Last Filed: 04/07/24 16:20> Exam Const: General: cooperative <Berto Travis MD - Last Filed: 04/07/24 16:20> General: obese <Tanya Mckeon MD - Last Filed: 04/04/24 10:27> Orientation/consciousness: oriented to person, oriented to place and oriented to time <Berto Travis MD - Last Filed: 04/07/24 16:20> HENMT: Face/Nose/Sinus: Normal external nose present <Berto Travis MD - Last Filed: 04/07/24 16:20> Eyes: General: appearance normal, both eyes and all related structures <Berto Travis MD - Last Filed: 04/07/24 16:20> Resp: Effort & Inspection: normal respiratory effort <Berto Travis MD - Last Filed: 04/07/24 16:20> GI: Inspection: normal to inspection <Berto Travis MD - Last Filed: 04/07/24 16:20> Skin: General skin exam: normal color <Berto Travis MD - Last Filed: 04/07/24 16:20> Neuro: General: oriented to person, oriented to place and oriented to time <Berto Travis MD - Last Filed: 04/07/24 16:20> Extrem: General: normal to inspection and no calf tenderness <Berto Travis MD - Last Filed: 04/07/24 16:20> Psych: Appearance: grossly normal <Berto Travis MD - Last Filed: 04/07/24 16:20> Mental Status: mental status grossly normal <Berto Travis MD - Last Filed: 04/07/24 16:20> DS: Data Data Completed and Pending Labs on day of discharge: Labs from last 24 hours 04/02/24 04/02/24 16:52 16:52 WBC 10.4 H RBC 3.82 L Hgb 10.7 L Hct 32.0 L MCV 83.8 MCH 28.0 MCHC 33.4 RDW 14.9 H Plt Count 245 MPV 11.2 H Immature Gran % (Auto) 0.7 H Neut % (Auto) 74.0 H Lymph % (Auto) 16.9 L [place] % (Auto) 8.1 Eos % (Auto) 0.0 Baso % (Auto) 0.3 Lymph # (Auto) 1.76 [place] # (Auto) 0.8 H Eos # (Auto) 0.0 Baso # (Auto) 0.0 Abs Immat Gran (auto) 0.07 H Absolute Neuts (auto) 7.7 H Absolute Nucleated RBC 0.000 Nucleated RBC % 0.0 Sodium 136 L Potassium 3.9 Chloride 107 Carbon Dioxide 20 L Anion Gap 9 BUN 8 Creatinine 0.49 L Estim Creat Clear Calc 178 Estimated GFR > 60 Glucose 86 Uric Acid 4.1 Cancelled Calcium 9.2 Total Bilirubin 0.4 AST 15 ALT 9 Alkaline Phosphatase 152 H Total Protein 7.0 Albumin 3.5 RPR Non-reactive HIV 1&2 Ab/P24 Ag 4thGn Negative Blood Type A Positive Antibody Screen Negative <Berto Travis MD - Last Filed: 04/07/24 16:20> Discharge Plan Discharge Attending physician on discharge: Berto Travis <Berto Travis MD - Last Filed: 04/07/24 16:20> Berto Travis <Tanya Mckeon MD - Last Filed: 04/04/24 10:27> Consulting providers: Jaimee Ferreira Brittany N. <Berto Travis MD - Last Filed: 04/07/24 16:20> Discharging Clinician: Tanya Mckeon <Berto Travis MD - Last Filed: 04/07/24 16:20> Tanya Mckeon <Tanya Mckeon MD - Last Filed: 04/04/24 10:27> Patient Disposition: Home, Self-Care <Berto Travis MD - Last Filed: 04/07/24 16:20> Activity: may shower and pelvic rest <Berto Travis MD - Last Filed: 04/07/24 16:20> may shower and pelvic rest <Tanya Mckeon MD - Last Filed: 04/04/24 10:27> Diet: regular <Berto Travis MD - Last Filed: 04/07/24 16:20> regular <Tanya Mckeon MD - Last Filed: 04/04/24 10:27> Discharge Instructions: Education: Mom and Baby Guide Given to: Mother Follow-Up: Call your delivering provider's office for an appointment to be seen. Mom and baby should come to the [facility] for the follow-up appointment. Appointment Date/Time: April 07, 2024 at 9:00 am What to expect at your follow-up visit: Physical Assessment Call [phone] if you are unable to keep your appointment time. BREAST CARE: * Wear a snug supportive bra. * For engorgement discomfort: Breast Feeding: * Apply warm moist washcloths * Express milk as needed to relieve engorgement * Wear loose clothing Bottle Feeding: * May apply ice packs * For sore nipples: * Identify correct latch-on * Apply warm moist washcloths before and after nursing * Air dry nipples after nursing * May apply Lansinoh cream to nipples PERINEAL CARE: * Until bleeding stops, use your yang bottle after urinating * Change your pad frequently throughout the day * You may take sitz baths several times a day (fill your bathtub with warm water and soak for 20 minutes.) Do NOT bathe in the water * No tub baths until seen by your physician - You may shower ACTIVITY: * Rest as much as possible. * Do not exercise or lift anything heavier than your baby (such as laundry or other children.) * Avoid stairs or driving as much as possible. * Do not put anything into the vagina. No douching, tampons, or sexual activity until seen by physician. NOTIFY PHYSICIAN IF YOU HAVE ANY QUESTIONS OR IF ANY OF THE FOLLOWING SYMPTOMS OCCUR: * If your perineum becomes red, swollen, or more painful than what you have experienced in the hospital. * If your vaginal bleeding becomes foul smelling. * If your vaginal bleeding becomes more heavy than a period or if your bleeding changes from pink to bright red. However, you may pass an occasional walnut-sized clot once or twice for the first week . * If you experience a sharp, shooting pain in you calves. * If you discover a hard, reddened area on your breast or if you experience flu-like symptoms. DIET: * Eat regular, well-balanced meals. * Drink plenty of fluids daily. <Berto Travis MD - Last Filed: 04/07/24 16:20> Patient Language: Kiswahili <Berto Travis MD - Last Filed: 04/07/24 16:20> Stand Alone Forms: General Discharge Information <Berto Travis MD - Last Filed: 04/07/24 16:20> Follow-up/Referrals: Berto Travis MD [Physician] - Call for Appointment <Berto Travis MD - Last Filed: 04/07/24 16:20> Discharge Medications: New acetaminophen 325 mg Tablet 650 mg PO Q6H PRN (Reason: Mild Pain (1-3) Or Headache) Qty: 60 0RF docusate sodium 100 mg Capsule 100 mg PO BID PRN (Reason: Constipation) Qty: 90 0RF ibuprofen 600 mg Tablet 600 mg PO Q6H PRN (Reason: Cramping) Qty: 40 0RF Continued DHA 200 mg capsule 200 mg PO DAILY <Berto Travis MD - Last Filed: 04/07/24 16:20> Date of admission: 04/02/24 15:27 <Berto Travis MD - Last Filed: 04/07/24 16:20> Primary Care Provider: UNKNOWN,DOCTOR <Berto Travis MD - Last Filed: 04/07/24 16:20> Admitting Provider: Berto Travis <Berto Travis MD - Last Filed: 04/07/24 16:20> Attending physician on admission: Tanya Mckeon <Berto Travis MD - Last Filed: 04/07/24 16:20> Condition: Stable <Berto Travis MD - Last Filed: 04/07/24 16:20>
[2024-04-04] MEDS: IRON SUCROSE COMPLEX 400 MG, IRON SUCROSE COMPLEX 100 MG in SODIUM CHLORIDE 0.9% IV 250 ML 78.57 MG IVPB (10:59)
[2024-04-04] MEDS: MULTIVIT/MIN/PREN/FOL AC/IRON TABLET 1 TAB PO (11:01)
[2024-04-04] MEDS: DOCUSATE SODIUM 100 MG CAPSULE PO (11:01)
[2024-04-04] MEDS: INFLUENZA TRIVALENT VACCINE 45 MCG/0.5 ML SYRINGE IM (13:11)
[2024-04-07 09:33] VITALS: BP 140/84; PULSE 96; RESP 18; TEMP 36.8; O2SAT 100
--- OUTSIDE RECORDS SUMMARY | 2024-04-09 04:11 | XMS_ITS | Clinical Summary ---
Author Organization [facility] Address [address] [place] [address] Phone Care Team Providers [employer] Workflow Consultant Name Role Phone SARAH ESQUIVEL, DENA Primary Care Provider [phone], LINDA Shi Unavailab le Reason for Visit and Chief Complaint The Chief Complaint is: Cough, body aches, headache and congestion for 3 days Problems Includes: Problems addressed during this encounter and other active Problems All Visits Onset Date Resolved Date Provider Condition S tatus Headache Syndromes 07/25/2021 CAN CARBAJAL PA-C Active Last Documented On 2 3:50PM ; [facility] Generalized Anxiety Disorder 07/18/2020 LINDA SHERMAN LCSW Active Last Documented On 1 8:45AM ; [facility] Eating Disorder Binge 11/27/2019 AISHA MARQUEZ PMHNP-BC [employer] REPA[employer]ER-BC Active Last Documented On 0 1:15PM ; [facility] Depression 05/02/2012 DENA SMITH MD Act kate Last Documented On 3 4:17PM ; [facility] Note: Unchanged Nephrolithiasis 01/23/2012 CAN Lozano Active Last Documented On 3 2:47PM ; [facility] Plan of Treatment - Return to the clinic if condition worsens or new symptoms arise - Last Documented On 04/09/2023 9:35AM ; [facility] - Patient will call for appointment as needed - Last Documented On 04/09/2023 9:35AM ; [facility] Assessments Includes: Assessments from this encounter Findings - [J06.9 - Acute upper respiratory infection, unspecified] Upper respiratory infection - Last Documented On 04/09/2023 9:35AM ; [facility] Medical Equipment - Implanted Devices Includes: Current Devices No Medical Equipment Recorded Medications Includes: Medications discussed during this encounter and other current Medications New / Renewed during this visit ANA LILIA VINCENT DNP on 04/09/2023 Medrol 4 MG Oral Tablet Therapy Pack Provider: ANA LILIA Alvarado SLABBER 6 day supply: 1 each, 0 refills Diagnosis: Acute cough as directed Pharmacy: [address], [phone] - Last Documented On 4 2:48PM By CAT MANUEL ; [facility] Medications Administered Includes: Administered Medications from this encounter No Administered Medications Recorded Vital Signs Includes: Vital Signs from this encounter Vital Name 04/09/2023 09:05A Pulse Rate-Sitting (bpm) 67 Temp-Oral (F) 97.9 Height (in) 65 Weight (lb) 213.2 Body Mass Index 35.5 Body Surface Area 2 Oxygen Saturation (%) 97 Last Documented: On 04/09/2023 9:06AM ; [facility] Results Includes: Results discussed during this encounter SARS COVID-19 FLU A & B [facility] Ordered by ANA LILIA VINCENT DNP on Collected: Reported: 04/09/2023 09:13 Last Documented On 4 9:14AM ; [facility] Reviewed on 04/09/2023; All test results are final unless otherwise noted. COVID Negative N (Normal) Last Documented On 4 9:13AM ; [facility] INFLUENZA A Negative (Negative) N (Normal) Last Documented On 4 9:13AM ; [facility] INFLUENZA B Negative (negative) N (Normal) Last Documented On 4 9:13AM ; [facility] INT. QC ACCEPTABLE? yes N (Normal) Last Documented On 4 9:13AM ; [facility] LOT # & EXP. DATE [id number] 02-12-24 N (Normal) Last Documented On 4 9:13AM ; [facility] Group A strep [facility] Ordered by ANA LILIA VINCENT DNP on Collected: Reported: 04/09/2023 09:12 Last Documented On 4 9:14AM ; [facility] Reviewed on 04/09/2023; All test results are final unless otherwise noted. Rapid Strep Negative N (Normal) Last Documented On 4 9:12AM ; [facility] LOT # AND EXP. DATE [id number] 09-25-25 N (Normal) Last Documented On 4 9:12AM ; [facility] INT. QC ACCEPTABLE? yes N (Normal) Last Documented On 4 9:12AM ; [facility] History of Present Illness Includes: History of Present Illness from this encounter HPI ELEAZAR ALDRIDGE is a 27 year old female. - Allergy list reviewed - Medication list reviewed - Previously well - No fever - No chills - Headache associated with head congestion - No sinus pain - No sinus pressure - No swollen glands in the neck - No itching of the eyes - No discharge from the eyes - Nasal discharge - Nasal passage blockage (stuffiness) - Sore throat - No earache - The ears do not feel pressured - The ears do not feel full - No discharge from the ears - No postnasal drip - No sneezing - No itchy throat - No chest pain or discomfort - No palpitations - Feeling congested in the chest - Cough - No dyspnea - No wheezing - Myalgia - No rash Eleazar presents to the clinic with the above reported symptoms that have been going on for the past 3 days now. She denies any known fever or chills but has had body aches. Patient denies any known sick contacts. Social History Description Last Updated Smoking electronic cigarettes 04/09/2023 Last Documented On 4 9:35AM ; [facility] Smoking Status Unknown Procedures and Surgical History Includes: Procedures from this encounter Procedures Code Diagnosis Performing Provider Service L ocation Service Date SARS-CO,SARS-COV-2, INFLUENZA A/B TEST ([facility] WA[facility]) 52384 Acute cough ANA LILIA VINCENT DNP [facility] 04/09/2023 Last Documented On 4 5:18PM ; [facility] STREP TEST SCREENING ([facility]IA WAIVED) 36004 Acute pharyngitis, unspecified ANA LILIA VINCENT DNP [facility] 04/09/2023 Last Documented On 4 5:18PM ; [facility] use of tobacco assessment performed 1000F Last Documented On 4 9:07AM ; [facility] review of medications documented 1160F Last Documented On 4 9:07AM ; [facility] Clinical summary provided to patient Last Documented On 4 9:29AM ; [facility] Medical History Includes: Medical History addressed during this encounter No Medical History Recorded Family History Includes: Family History addressed during this encounter No Family History Recorded Review of Systems Includes: Review of Systems from this encounter Systemic: Feeling poorly (malaise). No fever and no chills. Head: Headache. No sinus pain. Eyes: No itching of the eyes. Otolaryngeal: No earache. Nasal discharge. No hoarseness. Sore throat. Cardiovascular: No chest pain or discomfort. Pulmonary: No dyspnea. Cough. No wheezing. Musculoskeletal: Muscle aches. Skin: No rash. Mental Status Includes: Mental Status from this encounter No Mental Status Recorded Functional Status Includes: Functional Status from this encounter No Functional Status Recorded Physical Exam Includes: Physical Exam from this encounter Allergies Includes: Active Allergies No Known Allergies Encounters Encounter Provider Location Date Check-In Time Check-Out Time Diagnosis COVID SICK VISIT- ESTABLISHED PATIENT ANA LILIA VINCENT DNP [facility] 04/09/19 24 8:53AM 9:29AM Upper Respiratory Infection Insurance Includes: Active Insurance Policies Plan Name Member ID Group # Subscriber Relationship Effect kate Dates 1 - [employer] [id number] ELEAZAR Scanlon 2 - MEDICA[employer] [place] [facility] [id number] ELEAZAR Scanlon Clinical Notes Includes: Clinical Notes from this encounter * Progress note Date Encounter Last Documented by 04/09/2023 COVID SICK VISIT- ESTABLISHED PA TIENT Last documented on 04/09/2023; 9:35 AM, ANA LILIA VINCENT DNP; [facility] Chief Complaint The Chief Complaint is: Cough, body aches, headache and congestion for 3 days. History of Present Illness ELEAZAR ALDRIDGE is a 27 year old female. - Allergy list reviewed - Medication list reviewed - Previously well - No fever - No chills - Headache associated with head congestion - No sinus pain - No sinus pressure - No swollen glands in the neck - No itching of the eyes - No discharge from the eyes - Nasal discharge - Nasal passage blockage (stuffiness) - Sore throat - No earache - The ears do not feel pressured - The ears do not feel full - No discharge from the ears - No postnasal drip - No sneezing - No itchy throat - No chest pain or discomfort - No palpitations - Feeling congested in the chest - Cough - No dyspnea - No wheezing - Myalgia - No rash Eleazar presents to the clinic with the above reported symptoms that have been going on for the past 3 days now. She denies any known fever or chills but has had body aches. Patient denies any known sick contacts. Social History Tobacco use: Smoking electronic cigarettes. Review Of Systems Systemic: Feeling poorly (malaise). No fever and no chills. Head: Headache. No sinus pain. Eyes: No itching of the eyes. Otolaryngeal: No earache. Nasal discharge. No hoarseness. Sore throat. Cardiovascular: No chest pain or discomfort. Pulmonary: No dyspnea. Cough. No wheezing. Musculoskeletal: Muscle aches. Skin: No rash. Physical Findings - Vitals taken 04/09/2023 09:05 am Pulse Rate-Sitting 67 bpm Temp-Oral 97.9 F Height 65 in Weight 213 lbs 3.2 oz Body Mass Index 35.5 kg/m2 Body Surface Area 2 m2 Oxygen Saturation 97 % General Appearance: - Alert. - Well nourished. - In no acute distress. Neck: Suppleness: - Neck demonstrated no decrease in suppleness. Eyes: General/bilateral: Pupils: - PERRLA. Ears: General/bilateral: External Auditory Canal: - External auditory meatus normal. Tympanic Membrane: - Normal. Nose: General/bilateral: Discharge: - Nasal discharge. Cavity: - Nasal turbinate swollen. Sinus Tenderness: - No sinus tenderness. Pharynx: Oropharynx: - Normal. - Tonsils showed no abnormalities. - Tonsils were not erythematous. - Tonsils were not enlarged. Mucosal: - Pharynx showed an accumulation of purulent mucous. Lymph Nodes: - Anterior cervical lymph nodes were not enlarged. - Posterior cervical lymph nodes were not enlarged. Lungs: - Normal breath sounds/voice sounds. - No wheezing was heard. - No rhonchi were heard. Cardiovascular: Heart Rate And Rhythm: - Normal. Musculoskeletal System: General/bilateral: - Overall findings were normal. Skin: - General appearance was normal. - Texture was normal. - Turgor was normal. - Color and pigmentation were normal. - Moisture was normal. - Mucous membranes were not dry. Tests - Test: Group A strep Report Date: 04/09/2023 Rapid Strep Negative Normal LOT # AND EXP. DATE [id number] 09-25-25 Normal INT. QC ACCEPTABLE? yes Normal - Test: SARS COVID-19 FLU A & B Report Date: 04/09/2023 COVID Negative Normal INFLUENZA A Negative Normal INFLUENZA B Negative Normal INT. QC ACCEPTABLE? yes Normal LOT # & EXP. DATE [id number] 02-12-24 Normal Assessment - [J06.9 - Acute upper respiratory infection, unspecified] Upper respiratory infection Therapy - Clinical summary provided to patient. Discussed Testing was negative at today's visit. Take medrol dose pack as directed. Take with food to avoid stomach upset. 1. Increase fluid intake. 2. Rest as much as possible. 3. Encourage use of humidifier- Regularly clean the humidifier so that bacteria does not grow. 4. Encouraged Vitamin C and Zinc to help boost immune system. 5. Cool liquids to soothe the throat, throat sprays, throat lozenges, cool liquids to help soothe the throat. 6. Acetaminophen or ibuprofen as needed for pain/fever. 7. Antihistamine as needed- such as Zyrtec, Claritin, or Benadryl. 8. Normal saline nasal spray or Netti Pot with sterile water as needed. 9. Warm compress to sinus area. 10. Patient voiced understanding to the teaching. Plan StartCited - Acute cough In office procedures/*[facility] Waived Labs: SARS COVID-19 + flu A & B test Medrol 4 MG each as directed, 6 days, 0 refills EndCited StartCited - Acute pharyngitis, unspecified In office procedures/*[facility] Waived Labs: Rapid Strep Test EndCited - Return to the clinic if condition worsens or new symptoms arise - Patient will call for appointment as needed Practice Management Use of tobacco assessment performed Review of medications documented.
--- OUTSIDE RECORDS SUMMARY | 2024-04-09 04:11 | XMS_ITS ---
Care Plan - [facility] Created on: April 09, 2024 LUIS CARLOSELEAZAR : 1995 Sex: Female Author Organization [facility] Address [address] [place] [address] Phone Care Team Providers Care Environmental Health Technician Name Role Phone DENA SMITH MD Primary Care Provider [phone], LINDA [employer]eros le
--- OUTSIDE RECORDS SUMMARY | 2024-04-09 04:11 | XMS_ITS ---
Author Organization [facility] Address [address] [place] [address] Phone Care Team Providers Care Help Desk Rep Name Role Phone DENA SMITH MD Primary Care Provider [phone], LINDA Mcgowan Unavailable Unavailab le Reason for Referral Date Encounter Description Provider Reason for Referral 01/23/11 PROBLEM VISIT DENA SMITH MD Reque st Consultation By Mental Health Counselor Problems Includes: Active, inactive, and resolved Problems All Visits Onset Date Resolved Date Provider Condition S tatus Headache Syndromes 07/25/2021 CAN CARBAJAL PA-C Active Last Documented On 2 3:50PM ; [facility] Generalized Anxiety Disorder 07/18/2020 LINDA SHERMAN LCSW Active Last Documented On 1 8:45AM ; [facility] Eating Disorder Binge 11/27/2019 AISHA MARQUEZ PMHNP-BC SALES ESTIMATOR-BC Active Last Documented On 0 1:15PM ; [facility] Contraceptive Management 10/09/2017 Unknown CAN ROONEY PA-C Resolved Last Documented On 0 11:28AM ; [facility] Note: Unchanged Depression 05/02/2012 DENA SMITH MD Act kate Last Documented On 3 4:17PM ; [facility] Note: Unchanged Nephrolithiasis 01/23/2012 CAN Lozano Active Last Documented On 3 2:47PM ; [facility] Plan of Treatment Findings Encounter Date Ordered patient will call fo r appointment as needed COVID SICK VISIT- ESTABLISHED PATIENT with ANA LILIA VINCENT DNP 04/09/2023 Last Documented On 4 9:35AM ; [facility] Ordered return to the clinic if condition worsens or new symptoms arise COVID SICK VISIT- ESTABLISHED PATIENT with ANA LILIA VINCENT DNP 04/09/2023 Last Documented On 4 9:35AM ; [facility] Muscle relaxers as needed. B utalbital as needed for tension headaches. Local heat to neck, massage. Call sooner if needed. ER if condition severe PROBLEM VISIT with CAN CARBAJAL PA-C 03/05/2023 Last Documented On 3 3:06PM ; [facility] Ordered Clinical summary pro vided to patient . Plan discussed and patient/parent/caregiver states understanding PROBLEM VISIT with CAN CARBAJAL PA-C 03/05/2023 Last Documented On 3 3:06PM ; [facility] Ordered follow-up visit as needed PROBLEM VISIT with CAN CARBAJAL PA-C 03/05/2023 Last Documented On 3 3:06PM ; [facility] Ordered return to the clinic if condition worsens or new symptoms arise PROBLEM VISIT with CAN CARBAJAL PA-C 03/05/2023 Last Documented On 3 3:06PM ; [facility] Ordered follow-up visit as needed with an office visit. Discussed referral to urology in the future if needed. Cont to drink plenty of water, urinate often. Call sooner if needed. ER if condition severe EMERGENCY ROOM FOLLOWUP-ESTABLISHED PT with CAN CARBAJAL PA-C 01/22/2023 Last Documented On 3 3:13PM ; [facility] Continue topamax. Try hydrox yzine at night for sleep and anxiety. Call sooner if needed. ER if condition severe CHECK UP with CAN CARBAJAL PA-C 05/17/2022 Last Documented On 3 4:56PM ; [facility] Ordered Clinical summary pro vided to patient . Plan discussed and patient/parent/caregiver states understanding CHECK UP with CAN CARBAJAL PA-C 05/17/2022 Last Documented On 3 4:56PM ; [facility] Ordered follow-up visit 2-3 mo CHECK UP with JACQUES CARBAJAL PA-C 05/17/2022 Last Documented On 3 4:56PM ; [facility] Ordered return to the clinic if condition worsens or new symptoms arise CHECK UP with CAN CARBAJAL PA-C 05/17/2022 Last Documented On 3 4:56PM ; [facility] Ordered Clinical summary pro vided to patient . Plan discussed and patient/parent/caregiver states understanding PROBLEM VISIT with CAN CARBAJAL PA-C 04/10/2022 Last Documented On 3 3:30PM ; [facility] Ordered follow-up visit in 1 month with an office visit. Get fasting labs anytime. Discussed Ubrelvy or nurtec for abortive meds. Topamax for headache prevention. Pt doesn't want to do Emgality or Aimovig at this time. Declined toradol inj today and ALSTON isn't too severe. Stay hydrated. Call sooner if needed. ER if condition severe PROBLEM VISIT with CAN CARBAJAL PA-C 04/10/2022 Last Documented On 3 3:30PM ; [facility] Ordered Clinical summary pro vided to patient . Plan discussed and patient/parent/caregiver states understanding WORK PX with CAN CARBAJAL PA-C 10/12/2021 Last Documented On 2 11:44AM ; [facility] Ordered follow-up visit as n eeded with an office visit. Continue current meds. Contact office if new symptoms/problems arise WORK PX with CAN CARBAJAL PA-C 10/12/2021 Last Documented On 2 11:44AM ; [facility] Ordered Clinical summary pro vided to patient . Plan discussed and patient/parent/caregiver states understanding CHECK UP with CAN CARBAJAL PA-C 07/25/2021 Last Documented On 2 4:00PM ; [facility] Ordered follow-up visit in 2 months with an office visit. Increase prozac to 20mg daily. Go back on topamax for headaches. Start with 25mg daily for 1 wk then increase to 25mg twice a day. Recommended counseling. Call sooner if needed CHECK UP with CAN SALOMON-Blake 07/25/2021 Last Documented On 2 4:00PM ; [facility] Ordered Clinical summary pro vided to patient . Plan discussed and patient/parent/caregiver states understanding CHECK UP with CAN SALOMON-C 06/26/2021 Last Documented On 2 5:08PM ; [facility] Ordered follow-up visit 1 mo Will start with daily Prozac and see how depression/anxiety. If not much change after being on it for 2-3 mo consider effexor CHECK UP with CAN SALOMON-C 06/26/2021 Last Documented On 2 5:08PM ; [facility] Ordered return to the clinic if condition worsens or new symptoms arise CHECK UP with CAN SALOMON-C 06/26/2021 Last Documented On 2 5:08PM ; [facility] Ordered Clinical summary pro vided to patient . Plan discussed and patient/parent/caregiver states understanding WORK PX with CAN SALOMON-C 05/02/2021 Last Documented On 2 3:05PM ; [facility] Ordered follow-up visit as n eeded; 48 hrs to have TB test read. Contact office if new symptoms/problems arise WORK PX with CAN SALOMON-C 05/02/2021 Last Documented On 2 3:05PM ; [facility] Ordered return to the clinic if condition worsens or new symptoms arise WORK PX with CAN SALOMON-C 05/02/2021 Last Documented On 2 3:05PM ; [facility] Ordered Clinical summary pro vided to patient . Plan discussed and patient/parent/caregiver states understanding PROBLEM VISIT with CAN SALOMON-Blake 01/20/2021 Last Documented On 1 4:43PM ; [facility] Ordered follow-up visit as n eeded with an office visit. Will get fasting labs and pelvic ultrasound and go from there. Discussed possible PCOS; weight loss can help. Keep eye on breast--discussed possible cysts. Call sooner if needed PROBLEM VISIT with CAN CARBAJAL PA-C 01/20/2021 Last Documented On 1 4:43PM ; [facility] Ordered patient will call fo r appointment as needed COVID SICK VISIT- ESTABLISHED PATIENT with BERTIN Rose [facility] 10/11/2020 Last Documented On 1 1:26PM ; [facility] Ordered return to the clinic if condition worsens or new symptoms arise COVID SICK VISIT- ESTABLISHED PATIENT with BERTIN E [facility] 10/11/2020 Last Documented On 1 1:26PM ; [facility] Ordered return to the clinic if condition worsens or new symptoms arise MED CHECK with AISHA [facility] 11/27/2019 Last Documented On 0 1:23PM ; [facility] Keep up the great work with weight loss! Will increase Celexa and see if that helps with mood. Discussed can switch to Prozac in 1 mo if still no change. Contact me if depression worsens. Labs today to check thyroid. Call sooner if needed 1 MONTH CHECK with CAN CARBAJAL PA-C 05/04/2019 Last Documented On 0 2:20PM ; [facility] Ordered Clinical summary pro vided to patient . Plan discussed and patient/parent/caregiver states understanding 1 MONTH CHECK with CAN CARBAJAL PA-C 05/04/2019 Last Documented On 0 2:20PM ; [facility] Ordered follow-up visit 2 mo 1 MONTH CHECK with CAN CARBAJAL PA-C 05/04/2019 Last Documented On 0 2:20PM ; [facility] Ordered return to the clinic if condition worsens or new symptoms arise 1 MONTH CHECK with CAN CARBAJAL PA-C 05/04/2019 Last Documented On 0 2:20PM ; [facility] See Carmen for IUD insertion; handouts on Paragaurd and Mirena given. Start daily Celexa for anxiety--can take 4-6 wks to really start working. Discussed weight loss--phentermine for 4 mo in a row, then need 6 mo off. Increase exercise, watch portions, avoid high sugar/high carb. Call sooner if needed MED CHECK with CAN CARBAJAL PA-C 04/01/2019 Last Documented On 0 12:00PM ; [facility] Ordered Clinical summary pro vided to patient . Plan discussed and patient/parent/caregiver states understanding MED CHECK with CAN SALOMON-C 04/01/2019 Last Documented On 0 12:00PM ; [facility] Ordered follow-up visit 1 mo MED CHECK with ANNY SALOMON-C 04/01/2019 Last Documented On 0 12:00PM ; [facility] Ordered return to the clinic if condition worsens or new symptoms arise MED CHECK with CAN SALOMON-C 04/01/2019 Last Documented On 0 12:00PM ; [facility] Due date around Nov 09 [facility] makes you about 8 weeks along. Continue vitamin. Avoid NSAIDS--tylenol only. Tums for heartburn/indigestion. Call sooner if needed CHECK UP with CAN SALOMON-Blake 04/02/2018 Last Documented On 9 9:31AM ; [facility] Ordered Clinical summary pro vided to patient . Plan discussed and patient/parent/caregiver states understanding CHECK UP with CAN SALOMON-C 04/02/2018 Last Documented On 9 9:31AM ; [facility] Ordered follow-up visit as needed CHECK UP with CAN SALOMON-C 04/02/2018 Last Documented On 9 9:31AM ; [facility] Ordered return to the clinic if condition worsens or new symptoms arise CHECK UP with CAN SALOMON-C 04/02/2018 Last Documented On 9 9:31AM ; [facility] Ordered Clinical summary pro vided to patient . Plan discussed and patient/parent/caregiver states understanding 1 MONTH CHECK with CAN SALOMON-C 11/26/2017 Last Documented On 8 9:26AM ; [facility] Ordered follow-up visit in 2 months with an office visit. Discussed have only 5 more months of phentermine left. Keep up the great work!! Goal for next visit will be 175lbs. Call sooner if needed 1 MONTH CHECK with CAN SALOMON-Blake 11/26/2017 Last Documented On 8 9:26AM ; [facility] Ordered Clinical summary pro vided to patient . Plan discussed and patient/parent/caregiver states understanding CONSULTATION with CAN CARBAJAL PA-C 10/29/2017 Last Documented On 8 10:21AM ; [facility] Ordered follow-up visit in 1 month with an office visit. Increase the exercise. Continue to watch your diet. Start eating breakfast. Decrease caloric intake by 500 calories a day to lose 1 lb in 1 wk. Goal in 1 mo is 7-10 lbs lost. Discussed phentermine is short term--will do max 6 months. Call sooner if needed CONSULTATION with CAN CARBAJAL PA-C 10/29/2017 Last Documented On 8 10:21AM ; [facility] Ordered Clinical summary pro vided to patient . Plan discussed and patient/parent/caregiver states understanding OFFICE SURGERY with CAN CARBAJAL PA-C 10/09/2017 Last Documented On 8 11:57AM ; [facility] Ordered return to the clinic if condition worsens or new symptoms arise Schedule your first PAP smear/Well woman. Recommended Gardasil series OFFICE SURGERY with CAN CARBAJAL PA-C 10/09/2017 Last Documented On 8 11:57AM ; [facility] Ordered Clinical summary pro vided to patient . Plan discussed and patient/parent/caregiver states understanding SICK VISIT with CAN CARBAJAL PA-C 05/17/2015 Last Documented On 6 10:46AM ; [facility] Ordered follow-up visit as n eeded with an office visit. Push fluids, rest, hot steamy showers, vicks. Alternate tylenol/ibuprofen every 3 hrs for fever/pain. Salt water gargles, throat lozenges, Chloroseptic spray. Claritin/Zyrtec/Benadryl as needed for runny nose/drainage. Call sooner if symptoms worsen/persist beyond 3-4 days. Discussed testing for mono SICK VISIT with CAN CARBAJAL PA-C 05/17/2015 Last Documented On 6 10:46AM ; [facility] Discussed headaches and eye strain--get vision checked. Daily propranolol. Stop maxalt and take fiorcet as needed. Local heat to neck can help; massages. Call sooner if needed PROBLEM VISIT with CAN CARBAJAL PA-C 08/24/2014 Last Documented On 5 9:15AM ; [facility] Ordered Clinical summary pro vided to patient . Plan discussed and patient/parent/caregiver states understanding PROBLEM VISIT with CAN CARBAJAL PA-C 08/24/2014 Last Documented On 5 9:15AM ; [facility] Ordered follow-up visit 4 weeks PROBLEM VISIT wi th CAN CARBAJAL PA-C 08/24/2014 Last Documented On 5 9:15AM ; [facility] Ordered return to the clinic if condition worsens or new symptoms arise PROBLEM VISIT with CAN CARBAJAL PA-C 08/24/2014 Last Documented On 5 9:15AM ; [facility] Ordered Clinical summary pro vided to patient . Plan discussed and patient/parent/caregiver states understanding OFFICE SURGERY with CAN CARBAJAL PA-C 07/07/2014 Last Documented On 5 9:07AM ; [facility] Ordered Clinical summary pro vided to patient . Plan discussed and patient/parent/caregiver states understanding CONSULTATION with CAN CARBAJAL PA-C 05/11/2014 Last Documented On 5 10:22AM ; [facility] Ordered follow-up visit as n eeded with an office visit. Will order Nexplanon and to be placed in 2-3 weeks. Abstain from sex or use condoms during that time. Will do test prior to insertion. Call sooner if needed CONSULTATION with CAN CARBAJAL PA-C 05/11/2014 Last Documented On 5 10:22AM ; [facility] start propranolol daily. Bautista e maxalt as needed. Handout on Nexplanon given--patient plans to contact us to fill out paperwork if she wants to go ahead and get it. Call sooner if needed CONSULTATION with CAN CARBAJAL PA-C 02/23/2014 Last Documented On 4 3:40PM ; [facility] Ordered Clinical summary pro vided to patient . Plan discussed and patient/parent/caregiver states understanding CONSULTATION with CAN CARBAJAL PA-C 02/23/2014 Last Documented On 4 3:40PM ; [facility] Ordered follow-up visit 1 mo CONSULTATION with Yenifer CARBAJAL PA-C 02/23/2014 Last Documented On 4 3:40PM ; [facility] Ordered Clinical summary pro vided to patient . Plan discussed and patient understands DEPOSITION with CAN CARBAJAL PA-C 08/22/2012 Last Documented On 3 11:51AM ; [facility] Ordered follow-up visit as n eeded with an office visit. No tanning and sun exposure x 1 wk and see if that helps. Luke warm showers. Benadryl/claritin/zyrtec for itch. Call sooner if symptoms worsen DEPOSITION with CAN CARBAJAL PA-C 08/22/2012 Last Documented On 3 11:51AM ; [facility] Ordered follow-up visit as n eeded with an office visit.. Recommended condoms always. Patient to schedule WWE/pap INJECTION with JERICHO COLLIER PA-C 12/29/2010 Last Documented On 1 4:21PM ; [facility] Ordered follow-up visit as n eeded with an office visit. PROBLEM VISIT with MELLY BECK PA-C 11/10/2010 Last Documented On 1 9:46AM ; [facility] Ordered follow-up visit as n eeded with an office visit.. Discussed all contraceptive methods. Patient prefers to try either the pills or the Implanon and would like us to check to see if her insurance will cover. Discussed how to take OCP, effectiveness, what to do if misses pills, importance of condoms, etc. Patient to start OCP with her next period and will check to see if Implanon covered. Patient is to call to see if Gardasil covered or have her parent do so. Handout given CONSULTATION with JERICHO COLLIER PA-C 08/23/2010 Last Documented On 1 10:17AM ; [facility] Ordered follow-up visit as n eeded with an office visit. SICK VISIT with JERICHO COLLIER PA-C 07/12/2010 Last Documented On 1 11:04AM ; [facility] Pending Tests Order Diagnosis Results Due Ordering Gera perez Radiology @ [facility] - CT Scan Renal Survey CT (R/O STONE) Calculus of kidney 04/01/23 CAN CARBAJAL PA-C Last Documented On 3 12:21PM ; [facility] Lab T-3, Total 07/29/23 DEJUAN MATA ANS SALES ESTIMATOR-BC Last Documented On 4 3:14PM ; [facility] Lab T-4 (Thyroxine), Free 07/29/23 MELINDA TATUM LOERA SALES ESTIMATOR-BC Last Documented On 4 3:14PM ; [facility] Lab T S H 08/12/23 DEJUAN Faby MATA ANS SALES ESTIMATOR-BC Last Documented On 4 3:14PM ; [facility] Referrals To Diagnosis Other OTHER FAMILY LINDSEY NNING ADVICE NEC Note: Please call and see if covered then give info to parent to consider. Was given control pill in the meantime. Last Documented On 1 11:30AM ; [facility] Filter Tank Operator AMANDEEP BERG MD state , incidental Note: Dr. Berg. Last Documented On 9 8:38AM ; [facility] Paper Cutting Machine Operator [facility] OB /BLASTER HELPER - [address] [place] [address] - Encounter for oth general cnsl and advice on contraception Note: Carmen for IUD. Last Documented On 1 9:01AM ; [facility] Counselor Major depressive disorder, single episode, unspecified Last Documented On 0 3:53PM ; [facility] Counselor [address] [id number] - Major depressive disorder, single episode, unspecified Note: JV please Last Documented On 3 9:25AM ; [facility] Instructions to patient Intervention and counseling on cessation of tobacco use Last Documented On 3 2:50PM ; [facility] Intervention and counseling on cessation of tobacco use : Patient recieved smoking cessation handout Last Documented On 2 11:44AM ; [facility] Intervention and counseling on cessation of tobacco use : Patient recieved smoking cessation handout Last Documented On 2 3:03PM ; [facility] Intervention and counseling on cessation of tobacco use Last Documented On 1 2:09PM ; [facility] Instructions for patient Last Documented On 1 1:24PM ; [facility] Lose weight Last Documented On 0 10:48PM ; [facility] Abstinence from smoking Last Documented On 9 9:30AM ; [facility] Maintain a healthy diet Last Documented On 0 4:54PM ; [facility] No Special Instructions or D evices Last Documented On 0 4:54PM ; [facility] Education and Decision Aids were provided during visit for: Parent education about immun izations VIS# 01/09/11 Last Documented On 6 10:34AM ; [facility] Assessments Includes: Assessments for all patient encounters Findings Encounter Date [R94.6 - Abnormal results of thyroid function studies] thyroid function tests revealed nonspecific abnormal findings PROBLEM VISIT with DEJUAN BELL-ANYI 07/29/2023 Last Documented On 4 4:48PM ; [facility] Upper respiratory infection COVID SICK V ISIT- ESTABLISHED PATIENT with ANA LILIA VINCENT DNP 04/09/2023 Last Documented On 4 9:35AM ; [facility] Tension-type headache PROBLEM VISIT with CAN CARBAJAL PA-C 03/05/2023 Last Documented On 3 3:06PM ; [facility] Nephrolithiasis * PHONE CALL with CAN ROUSE PA-C 01/31/2023 Last Documented On 3 12:12PM ; [facility] Nephrolithiasis EMERGENCY ROOM FOLLO WUP-ESTABLISHED PT with CAN CARBAJAL PA-C 01/22/2023 Last Documented On 3 3:13PM ; [facility] Dysuria WALK IN PATIENT - ESTABLISHED PT with ANA LILIA VINCENT DNP 01/09/2023 Last Documented On 3 3:27PM ; [facility] Urinary tract infection WALK IN PATIENT - ESTABLISHED PT with ANA LILIA VINCENT DNP 01/09/2023 Last Documented On 3 3:27PM ; [facility] Binge eating disorder BEHAVIORAL HEALTH INTEGRATION NEW PATIENT with VIBHA SIMMS SUPERVISOR ASSEMBLY [employer] PACKING 01/02/2023 Last Documented On 3 4:06PM ; [facility] Generalized anxiety disorder BEHAVIORAL HEALTH INTEGRATION NEW PATIENT with VIBHA SIMMS SUPERVISOR [employer]SEM[employer] PACKING 01/02/2023 Last Documented On 3 4:06PM ; [facility] Generalized anxiety disorder BEHAVIORAL HEALTH INTEGRATION NEW PATIENT with VIBHA SIMMS SUPERVISOR ASSEMBLY [employer] PACKING 01/02/2023 Last Documented On 3 4:06PM ; [facility] Binge eating disorder * PHONE CALL with CAN SALOMON-C 12/07/2022 Last Documented On 3 12:15PM ; [facility] Depression * PHONE CALL with CAN SALOMON-C 12/07/2022 Last Documented On 3 12:15PM ; [facility] Generalized anxiety disorder CHECK UP with JONNY SALOMON-C 05/17/2022 Last Documented On 3 4:56PM ; [facility] Headache syndromes CHECK UP with CAN SALOMON-C 05/17/2022 Last Documented On 3 4:56PM ; [facility] Amenorrhea PROBLEM VISIT with CAN STEELE PA-C 04/10/2022 Last Documented On 3 3:30PM ; [facility] Headache syndromes PROBLEM VISIT with CAN JOHNSON PA-C 04/10/2022 Last Documented On 3 3:30PM ; [facility] Routine history and physical WORK PX with CAN CARBAJAL PA-C 10/12/2021 Last Documented On 2 11:44AM ; [facility] Depression with anxiety CHECK UP with CAN JOHNSON PA-C 07/25/2021 Last Documented On 2 4:00PM ; [facility] Headache syndromes CHECK UP with CAN Middleton PA-C 07/25/2021 Last Documented On 2 4:00PM ; [facility] Depression with anxiety CHECK UP with CAN JOHNSON PA-C 06/26/2021 Last Documented On 2 5:08PM ; [facility] Routine history and physical WORK PX with CAN CARBAJAL PA-C 05/02/2021 Last Documented On 2 3:05PM ; [facility] COVID-19 infection COVID SICK VISIT- ES TABLISHED PATIENT with ANA LILIA [place] SALES ESTIMATOR-C 04/10/2021 Last Documented On 2 1:31PM ; [facility] Amenorrhea PROBLEM VISIT with CAN STEELE PA-C 01/20/2021 Last Documented On 1 4:43PM ; [facility] Female pelvic pain PROBLEM VISIT with CAN JOHNSON PA-C 01/20/2021 Last Documented On 1 4:43PM ; [facility] Headache syndromes PROBLEM VISIT with CAN JOHNSON PA-C 01/20/2021 Last Documented On 1 4:43PM ; [facility] Polycystic Ovarian Syndrome (PCOS) PROBL EM VISIT with CAN CARBAJAL PA-C 01/20/2021 Last Documented On 1 4:43PM ; [facility] Depression CHECK UP with DENA SMITH MD 11/25/2020 Last Documented On 1 11:02AM ; [facility] Generalized anxiety disorder CHECK UP with ALICIA SMITH MD 11/25/2020 Last Documented On 1 11:02AM ; [facility] Depression PROBLEM VISIT with DENA JURADO MD 10/25/2020 Last Documented On 1 10:40AM ; [facility] Generalized anxiety disorder PROBLEM VISIT with DENA SMITH MD 10/25/2020 Last Documented On 1 10:40AM ; [facility] Acute upper respiratory infection COVID SICK VISIT- ESTABLISHED PATIENT with BERTIN NUNO SALES ESTIMATOR-BC 10/11/2020 Last Documented On 1 1:26PM ; [facility] Binge eating disorder CHECK UP with DENA MCDONALD MD 05/09/2020 Last Documented On 1 10:56PM ; [facility] Depression CHECK UP with DENA SMITH MD 05/09/2020 Last Documented On 1 10:56PM ; [facility] Routine history and physical CHECK UP with ALICIA SMITH MD 05/09/2020 Last Documented On 1 10:56PM ; [facility] Binge eating disorder MED CHECK with AISHA CASEY PMHNP-BC SALES ESTIMATOR-BC 11/27/2019 Last Documented On 0 1:23PM ; [facility] Obesity MED CHECK with AISHA DOMINGUEZ [facility]- SALES ESTIMATOR- 11/27/2019 Last Documented On 0 1:23PM ; [facility] Periapical abscess WALK-IN CLINIC SICK VISIT last [place] SALES ESTIMATOR- 11/01/2019 Last Documented On 0 5:38PM ; [facility] Binge eating disorder MED CHECK with DENA ADAMS MD 07/21/2019 Last Documented On 0 10:49PM ; [facility] Depression MED CHECK with DENA Cummins MD 07/21/2019 Last Documented On 0 10:49PM ; [facility] Anxiety disorder NOS 1 MONTH CHECK with CAN E CARBAJAL PA-C 05/04/2019 Last Documented On 0 2:20PM ; [facility] Depression 1 MONTH CHECK with CAN E JENK INS PA-C 05/04/2019 Last Documented On 0 2:20PM ; [facility] Hyperhidrosis 1 MONTH CHECK with CAN E JENK INS PA-C 05/04/2019 Last Documented On 0 2:20PM ; [facility] Obesity 1 MONTH CHECK with CAN E JENK INS PA-C 05/04/2019 Last Documented On 0 2:20PM ; [facility] Anxiety disorder NOS MED CHECK with CAN E DIAN KINS PA-C 04/01/2019 Last Documented On 0 12:00PM ; [facility] Contraceptive management MED CHECK with CAN E CARBAJAL PA-C 04/01/2019 Last Documented On 0 12:00PM ; [facility] Obesity MED CHECK with CAN CARBAJAL PA-C 04/01/2019 Last Documented On 0 12:00PM ; [facility] Amenorrhea CHECK UP with CAN Milton CARBAJAL P A-C 04/02/2018 Last Documented On 9 9:31AM ; [facility] CHECK UP with CANYU CARBAJAL P A-C 04/02/2018 Last Documented On 9 9:31AM ; [facility] Obesity 1 MONTH CHECK with CAN BYRD INS PA-C 11/26/2017 Last Documented On 8 9:26AM ; [facility] Obesity CONSULTATION with CAN ROUSE PA-C 10/29/2017 Last Documented On 8 10:21AM ; [facility] Contraceptive surveillance OFFICE SURGERY with Yenifer CARBAJAL PA-C 10/09/2017 Last Documented On 8 11:57AM ; [facility] Prophylactic Immunotherapy given INJECTION with DENA SMITH MD 03/07/2016 Last Documented On 6 10:49AM ; [facility] Acute pharyngitis VIRAL SICK VISIT with CAN CARBAJAL PA-C 05/17/2015 Last Documented On 6 10:46AM ; [facility] Allergic rhinitis SAME DAY SICK VISIT with ALICIA SMITH MD 01/17/2015 Last Documented On 5 1:29PM ; [facility] Eyestrain PROBLEM VISIT with CAN STEELE PA-C 08/24/2014 Last Documented On 5 9:15AM ; [facility] Tension-type headache PROBLEM VISIT with CAN CARBAJAL PA-C 08/24/2014 Last Documented On 5 9:15AM ; [facility] Contraceptive management OFFICE SURGERY with JACQUES CARBAJAL PA-C 07/07/2014 Last Documented On 5 9:07AM ; [facility] Contraceptive management CONSULTATION with JONNY CARBAJAL PA-C 05/11/2014 Last Documented On 5 10:22AM ; [facility] Contraceptive management CONSULTATION with JONNY CARBAJAL PA-C 02/23/2014 Last Documented On 4 3:40PM ; [facility] Headache syndromes CONSULTATION with CAN ROONEY PA-C 02/23/2014 Last Documented On 4 3:40PM ; [facility] Eustachian tube dysfunction SICK VISIT with GAGE SMITH MD 02/16/2014 Last Documented On 4 10:00AM ; [facility] Viral infection OR POSSIBLE MEDICATION REACTION SICK VISIT with DENA SMITH MD 02/16/2014 Last Documented On 4 10:00AM ; [facility] Contraceptive management INJECTION with CAN E CARBAJAL PA-C 02/08/2014 Last Documented On 4 8:36AM ; [facility] Contraceptive management INJECTION with CAN E CARBAJAL PA-C 11/10/2013 Last Documented On 4 10:05AM ; [facility] Contraceptive management INJECTION with CAN E CARBAJAL PA-C 08/19/2013 Last Documented On 4 10:31AM ; [facility] Depression 3 WK CK-UP with DENA POLANCO MD 06/16/2013 Last Documented On 4 3:58PM ; [facility] Contraceptive management INJECTION with DENA QUIGLEY MD 05/26/2013 Last Documented On 4 4:18PM ; [facility] Depression INJECTION with DENA Cummins MD 05/26/2013 Last Documented On 4 4:18PM ; [facility] Depression PROBLEM VISIT with DENA JURADO MD 04/29/2013 Last Documented On 4 4:30PM ; [facility] Fatigue PROBLEM VISIT with DENA JURADO MD 04/29/2013 Last Documented On 4 4:30PM ; [facility] Contraceptive management INJECTION with CAN E CARBAJAL PA-C 03/04/2013 Last Documented On 3 3:28PM ; [facility] Contraceptive management INJECTION with CAN E CARBAJAL PA-C 12/11/2012 Last Documented On 3 2:30PM ; [facility] Contraceptive management DEPOSITION with CAN E CARBAJAL PA-C 08/22/2012 Last Documented On 3 11:51AM ; [facility] Heat rash DEPOSITION with CAN CARBAJAL PA-C 08/22/2012 Last Documented On 3 11:51AM ; [facility] Contraceptive management GENERAL OFFICE VISIT wi th DENA SMITH MD 06/02/2012 Last Documented On 3 5:16PM ; [facility] Depression 2 WK CK-UP with DENA POLANCO MD 05/02/2012 Last Documented On 3 4:18PM ; [facility] Stye in right upper eyelid 2 WK CK-UP with ALICIA SMITH MD 05/02/2012 Last Documented On 3 4:18PM ; [facility] Depression PROBLEM VISIT with DENA JURADO MD 04/11/2012 Last Documented On 3 9:55AM ; [facility] Contraceptive management INJECTION with DENA QUIGLEY MD 03/12/2012 Last Documented On 2 5:23PM ; [facility] Contraceptive management INJECTION with DENA QUIGLEY MD 12/13/2011 Last Documented On 2 10:53PM ; [facility] Contraceptive management DEPO INJECTION with NAV SMITH MD 09/12/2011 Last Documented On 2 11:25PM ; [facility] Contraceptive management INJECTION with DENA QUIGLEY MD 06/15/2011 Last Documented On 2 11:07PM ; [facility] Contraceptive management INJECTION with JERICHO COLLIER PA-C 03/23/2011 Last Documented On 2 3:22PM ; [facility] Assessment of abdominal pain in a non acute abdomen PROBLEM VISIT with MELLY BECK PA-C 02/13/2011 Last Documented On 1 9:08AM ; [facility] Constipation -rx given to pt to have [facility] at [facility] will call with results when available. Increase water and fiber intake. Miralax 1 capful in 8 oz of water daily x 1 week then prn PROBLEM VISIT with MELLY BECK PA-C 02/13/2011 Last Documented On 1 9:08AM ; [facility] Anxiety disorder NOS PROBLEM VISIT with DENA QUIGLEY MD 01/23/2011 Last Documented On 1 6:50PM ; [facility] Primary insomnia PROBLEM VISIT with DENA MCDONALD MD 01/23/2011 Last Documented On 1 6:50PM ; [facility] Contraceptive management INJECTION with JERICHO COLLIER PA-C 12/29/2010 Last Documented On 1 4:21PM ; [facility] Tinea corporis -pt needs to be diligent at using cream bid for up to a month, if not resolved will let me know PROBLEM VISIT with MELLY BECK PA-C 11/10/2010 Last Documented On 1 9:46AM ; [facility] Contraceptive management CONSULTATION with JERICHO COLLIER PA-C 08/23/2010 Last Documented On 1 10:17AM ; [facility] Acute bronchitis SICK VISIT with JERICHO Khalil 07/12/2010 Last Documented On 1 11:04AM ; [facility] [employer] PHYSICAL with JERICHO COLLIER PA-C 10/19/2009 Last Documented On 0 4:57PM ; [facility] Pityriasis rosea SICK VISIT with JERICHO Khalil 12/20/2008 Last Documented On 9 11:08AM ; [facility] Instructions Includes: Instructions for all patient encounters Instructions to patient Intervention and counseling on cessation of tobacco use Last Documented On 3 2:50PM ; [facility] Intervention and counseling on cessation of tobacco use : Patient recieved smoking cessation handout Last Documented On 2 11:44AM ; [facility] Intervention and counseling on cessation of tobacco use : Patient recieved smoking cessation handout Last Documented On 2 3:03PM ; [facility] Intervention and counseling on cessation of tobacco use Last Documented On 1 2:09PM ; [facility] Instructions for patient Last Documented On 1 1:24PM ; [facility] Lose weight Last Documented On 0 10:48PM ; [facility] Abstinence from smoking Last Documented On 9 9:30AM ; [facility] Maintain a healthy diet Last Documented On 0 4:54PM ; [facility] No Special Instructions or D evices Last Documented On 0 4:54PM ; [facility] Education and Decision Aids were provided during visit for: Parent education about immun izations VIS# 01/09/11 Last Documented On 6 10:34AM ; [facility] Medical Equipment - Implanted Devices Includes: Current and historical Devices No Medical Equipment Recorded Medications Includes: Current and historical Medications Past Medications on file Medrol 4 MG Oral Tablet Therapy Pack 04/09/2023 - 07/29/2023 Provider: ANA LILIA ROMAN DNP Diagnosis: Acute cough as directed Last Documented On 4 2:48PM By CAT MANUEL ; [facility] [id number] 50-325-40 MG Oral Tablet 03/05/2023 - 07/29/2023 Provider: CAN CARBAJAL PA-C Diagnosis: Tension-type headache, unspecified, intractable 1 every 6 hours as needed; m ay substitute for caps if needed. Last Documented On 4 2:48PM By CAT MANUEL ; [facility] Cyclobenzaprine HCl 5 MG Oral Tablet 03/05/2023 - 07/29/2023 Provider: CAN CARBAJAL PA-C Diagnosis: Tension-type headache, unspecified, intractable 1-2 tabs BID PRN muscle spasms. Last Documented On 4 2:48PM By CAT MANUEL ; [facility] Flomax 0.4 MG Oral Capsule 01/31/2023 - 03/05/2023 Provider: CAN CARBAJAL PA-C Diagnosis: Calculus of kidn ey One tablet daily May use generic. Last Documented On 03/05/2023 2:40PM By FREDERICK MANUEL ; [facility] Cefdinir 300 MG Oral Capsule 01/11/2023 - 01/22/2023 Gera guerinder: Diagnosis: Last Documented On 01/22/2023 2:31PM By FREDERICK MANUEL ; [facility] Ketorolac Tromethamine 10 MG Oral Tablet 01/11/2023 - 01/22/2023 Provider: Diagnosis: Last Documented On 01/22/2023 2:31PM By FREDERICK MANUEL ; [facility] Macrobid 100 MG Oral Capsule 01/09/2023 - 01/22/2023 Provider: ANA LILIA ROMAN DNP Diagnosis: Urinary tract infection, site not specified 1 CAPSULE TWO TIMES A DAY FOR 5 DAYS Last Documented On 01/22/2023 2:31PM By FREDERICK MANUEL ; [facility] Topiramate 25 MG Oral Tablet 05/31/2022 - 01/22/2023 Provider: CAN CARBAJAL PA-C Diagnosis: Other headache syndrome 1 TABLET 2 TIMES DAILY. USE GENERIC Last Documented On 01/22/2023 2:32PM By FREDERICK MANUEL ; [facility] hydrOXYzine Pamoate 25 MG Oral Capsule 05/17/2022 - 01/22/2023 Provider: CAN CARBAJAL PA-C Diagnosis: Generalized anxi ety disorder One tablet at bed time for sleep and anxiety. Last Documented On 01/22/2023 2:32PM By FREDERICK MANUEL ; [facility] Topamax 25 MG Oral Tablet 05/17/2022 - 05/31/2022 Provider: CAN CARBAJAL PA-C Diagnosis: Other headache syndrome One tablet twice a day Last Documented On 3 4:56PM By CAN CARBAJAL PA-C ; [facility] Topamax 25 MG Oral Tablet 04/10/2022 - 05/17/2022 Provider: CAN CARBAJAL PA-C Diagnosis: Other headache syndrome 1 tab PO daily x 1 wk then i ncrease to 1 tab BID. Use generic. Last Documented On 3 3:26PM By CAN CARBAJAL PA-C ; [facility] Topamax 25 MG Oral Tablet 07/25/2021 - 05/17/2022 Provider: CAN CARBAJAL PA-C Diagnosis: Other headache syndrome 1 tab PO daily x 1 wk then i ncrease to 1 tab BID. Use generic. Last Documented On 05/17/2022 3:05PM By FREDERICK MANUEL ; [facility] PROzac 20 MG Oral Capsule 07/25/2021 - 05/17/2022 Provider: CAN CARBAJAL PA-C Diagnosis: Other specified anxiety disorders 1 capsule daily; generic. Increase. Last Documented On 05/17/2022 3:05PM By FREDERICK MANUEL ; [facility] PROzac 10 MG Oral Capsule 06/26/2021 - 05/17/2022 Provider: CAN CARBAJAL PA-C Diagnosis: Other specified anxiety disorders One tablet daily Last Documented On 05/17/2022 3:04PM By FREDERICK MANUEL ; [facility] Lexapro 10 MG Oral Tablet 11/25/2020 - 05/02/2021 Provider: DENA SMITH MD Diagnosis: Generalized anxi ety disorder as directed 1 1/2 tablets daily Last Documented On 05/02/2021 2:31PM By FREDERICK MANUEL ; [facility] Lexapro 10 MG Oral Tablet 10/25/2020 - 01/20/2021 Provider: DENA SMITH MD Diagnosis: Generalized anxi ety disorder One tablet daily Last Documented On 1 2:41PM By CAN CARBAJAL PA-C ; [facility] Vyvanse 20 MG Oral Capsule 10/25/2020 - 11/20/2020 Provider: DENA SIMTH MD Diagnosis: Binge eating dis order 1 capsule daily Last Documented On 10:58AM By DENA SMITH MD ; [facility] Vyvanse 30 MG Oral Capsule 05/09/2020 - 10/16/2020 Provider: DENA SMITH MD Diagnosis: Binge eating dis order One tablet daily Last Documented On 10/25/2020 10:02AM By Radha MANUEL ; [facility] Vyvanse 30 MG Oral Capsule 11/27/2019 - 05/09/2020 Provider: AISHA MCBRIDE PMHNP-BC SALES ESTIMATOR-BC Diagnosis: Binge eating dis order One tablet daily Last Documented On 1 2:09PM By DENA SMITH MD ; [facility] Amoxicillin-Pot Clavulanate 875-125 MG Oral Tablet 11/01/2019 - 11/27/2019 Provider: ANA LILIA [place] SALES ESTIMATOR-C Diagnosis: Periapical absce ss without sinus One tablet twice a day Last Documented On 11/27/2019 1:03PM By Eleazar Alejandre MA ; [facility] Cipro 250 MG Oral Tablet 10/07/2019 - 11/27/2019 Provi france: DENA SMITH MD Diagnosis: One tablet twice a day Last Documented On 11/27/2019 1:04PM By Eleazar Alejandre MA ; [facility] Vyvanse 30 MG Oral Capsule 07/21/2019 - 11/27/2019 Provider: DENA SMITH MD Diagnosis: Binge eating dis order One tablet daily Last Documented On 0 1:18PM By AISHA CASEY [facility] ; [facility] CeleXA 40 MG Oral Tablet 05/04/2019 - 11/27/2019 Provider: CAN CARBAJAL PA-C Diagnosis: Anxiety disorder , unspecified One tablet daily this is an increase. Generic. Last Documented On 11/27/2019 1:04PM By Eleazar Alejandre MA ; [facility] Phentermine HCl 37.5 MG Oral Tablet 05/04/2019 - 07/21/2019 Provider: CAN CARBAJAL PA-C Diagnosis: Other obesity 1/2 to 1 tab PO qd; take around 10:30 AM. Last Documented On 07/21/2019 2:29PM By [email or web address] ; [facility] CeleXA 20 MG Oral Tablet 04/01/2019 - 07/21/2019 Provider: CAN CARBAJAL PA-C Diagnosis: Anxiety disorder , unspecified One tablet daily Generic Last Documented On 07/21/2019 2:29PM By [email or web address] ; [facility] Phentermine HCl 37.5 MG Oral Tablet 04/01/2019 - 05/04/2019 Provider: CAN CARBAJAL PA-C Diagnosis: Other obesity 1/2 to 1 tab PO qd; take around 10:30 AM. Last Documented On 0 2:09PM By CAN CARBAJAL PA-C ; [facility] Phentermine HCl 37.5MG Oral Tablet 11/26/2017 - 07/21/2019 Provider: CAN CARBAJAL PA-C Diagnosis: Other obesity 1/2 to 1 tab PO qd; take lizzeth und 10:30 AM. Fill when due. Appt due in Jan. Last Documented On 07/21/2019 2:29PM By [email or web address] ; [facility] Phentermine HCl 37.5MG Oral Tablet 10/29/2017 - 11/26/2017 Provider: CAN CARBAJAL PA-C Diagnosis: Other obesity 1/2 to 1 tab PO qd; take around 10:30 AM. Last Documented On 8 9:20AM By CAN CARBAJAL PA-C ; [facility] Sprintec 28 0.25-35MG-MCG Oral Tablet 10/09/2017 - 04/01/2019 Provider: CAN CARBAJAL PA-C Diagnosis: Encounter for surveillance of contraceptives, unspecified One tablet daily; needs well woman exam. Last Documented On 04/01/2019 11:03AM By GOSIA MANUEL ; [facility] Desloratadine 5 MG Tablet 01/17/2015 - 05/17/2015 Provider: DENA SMITH MD Diagnosis: Allergic rhiniti s, unspecified One tablet daily for allergies Last Documented On 05/17/2015 10:11AM By OBIE ACEVEDO MA ; [facility] Fluticasone Propionate 50 MCG/ACT Suspension 01/17/2015 - 05/17/2015 Provider: DENA SMITH MD Diagnosis: Allergic rhiniti s, unspecified as directed 2 sprays each nostril qday Last Documented On 05/17/2015 10:11AM By OBIE ACEVEDO MA ; [facility] Anusol-HC 2.5 % Cream 01/17/2015 - 05/17/2015 Provider: DENA SMITH MD Diagnosis: Allergic rhiniti s, unspecified Apply twice a day Last Documented On 05/17/2015 10:11AM By OBIE ACEVEDO MA ; [facility] Zithromax Z-Gregg 250 MG Tablet 12/08/2014 - 05/17/2015 Provider: DENA STOREY MD Diagnosis: as directed Last Documented On 05/17/2015 10:10AM By OBIE ACEVEDO MA ; [facility] Amoxicillin 500 MG Capsule, conventional 09/15/2014 - 05/17/2015 Provider: CAN CARBAJAL PA-C Diagnosis: three times a day Last Documented On 05/17/2015 10:10AM By OBIE ACEVEDO MA ; [facility] Fioricet 50-300-40 MG Capsule, conventional 08/24/2014 - 05/17/2015 Provider: CAN CARBAJAL PA-C Diagnosis: TENSION HEADACHE NOS 1 cap PO q 4 hrs PRN; max 6 caps/day. [place]. Generic. Last Documented On 05/17/2015 10:11AM By OBIE ACEVEDO MA ; [facility] Propranolol HCl 40 MG Tablet 08/24/2014 - 05/17/2015 Provider: CAN CARBAJAL PA-C Diagnosis: HEADACHE SYNDROM E NEC One tablet twice a day Last Documented On 05/17/2015 10:11AM By OBIE ACEVEDO MA ; [facility] Propranolol HCl 40 MG OR TABS 02/23/2014 - 08/24/2014 Provider: CAN CARBAJAL PA-C Diagnosis: HEADACHE SYNDROM E NEC Last Documented On 5 8:53AM By CAN CARBAJAL PA-C ; [facility] Maxalt 5 MG OR TABS 02/23/2014 - 05/17/2015 Provider: CAN CARBAJAL PA-C Diagnosis: HEADACHE SYNDROM E NEC 1 tab PO at onset of [place]; may repeat in 2 hrs. Max 6 tabs in 1 day. Generic. Last Documented On 05/17/2015 10:11AM By OBIE ACEVEDO MA ; [facility] Depo-Provera 150 MG/ML IM SUSP 02/23/2014 - 07/07/2014 Provider: Diagnosis: Last Documented On 5 8:15AM By DOMITILA MAGANA MA ; [facility] Xanax 0.25 MG OR TABS 10/14/2013 - 07/07/2014 Provider : DENA SMITH MD Diagnosis: 1 Q 6 HRS PRN. RONDA Last Documented On 5 8:15AM By DOMITILA MAGANA MA ; [facility] Lexapro 10 MG OR TABS 06/16/2013 - 02/16/2014 Provider : DENA SMITH MD Diagnosis: GENERIC Last Documented On 02/16/2014 9:32AM By Juany MANUEL ; [facility] Lexapro 10 MG OR TABS 05/26/2013 - 06/16/2013 Provider : DENA SMITH MD Diagnosis: GENERIC Last Documented On 4 3:53PM By DENA SMITH MD ; [facility] CeleXA 20 MG OR TABS 04/29/2013 - 06/16/2013 Provider: DENA SMITH MD Diagnosis: DEPRESSIVE DISOR FR[place] NEC Last Documented On 4 3:13PM By CRISTINA MANUEL ; [facility] Hydrocortisone 2.5% EX CREA 08/22/2012 - 12/10/2012 Pr ovider: CAN CARBAJAL PA-C Diagnosis: PRICKLY HEAT Apply to affected area BID. Last Documented On 12/10/2012 3:00PM By LUDMILA TURCIOS MA ; [facility] CeleXA 40 MG OR TABS 05/02/2012 - 04/29/2013 Provider: DENA SMITH MD Diagnosis: Last Documented On 4 3:44PM By CRISTINA MANUEL ; [facility] CeleXA 20 MG OR TABS 04/11/2012 - 04/29/2013 Provider: DENA SMITH MD Diagnosis: ANXIETY STATE NO S Last Documented On 4 3:44PM By CRISTINA MANUEL ; [facility] CeleXA 20 MG OR TABS 01/23/2011 - 04/11/2012 Provider: DENA SMITH MD Diagnosis: ANXIETY STATE NO S Last Documented On 3 9:42AM By DENA SMITH MD ; [facility] Nystatin 434227 UNIT/GM EX CREA 11/10/2010 - 12/10/2012 Provider: MELLY Lozano Diagnosis: Dermatophytosis Of Body apply to affected area bid x 4 weeks Last Documented On 12/10/2012 3:00PM By LUDMILA TURCIOS MA ; [facility] Ortho-Cyclen (28) 0.25-35 MG-MCG OR TABS 08/23/2010 - 06/15/2011 Provider: JERICHO COLLIER PA-C Diagnosis: OTHER FAMILY LINDSEY NNING ADVICE NEC Last Documented On 2 11:05PM By DENA SMITH MD ; [facility] Zithromax Z-Gregg 250 MG OR TABS 07/12/2010 - 12/10/2012 Provider: JERICHO Lozano Diagnosis: ACUTE BRONCHITIS as directed Last Documented On 12/10/2012 3:00PM By LUDMILA TURCIOS MA ; [facility] Ventolin HFA 108 (90 Base) MCG/ACT IN AERS 07/12/2010 - 12/10/2012 Provider: JERICHO Lozano Diagnosis: ACUTE BRONCHITIS 2 puffs every 4-6 hours PRN Last Documented On 12/10/2012 3:00PM By LUDMILA TURCIOS MA ; [facility] Medications Administered Includes: Administered Medications in patient's chart Medications Administered Diagnosis Date Pro vider Depo-Provera 150 MG/ML IM SUSP 03/04/2013 CAN E CARBAJAL PA-C NEXT INJECTION 05/26/13 Last Documented On 3 3:26PM By LUDMILA TURCIOS MA ; [facility] Depo-Provera 150 MG/ML IM SUSP 02/08/2014 CAN E RAVEN PA-C Last Documented On 4 8:32AM By DOMITILA MAGANA MA ; [facility] Depo-Provera 150 MG/ML IM SUSP 12/13/2011 DENA SMITH MD next depo due 03/05/12 Last Documented On 2 9:21AM By LUDMILA TURCIOS MA ; [facility] Depo-Provera 150 MG/ML IM SUSP 12/11/2012 CAN E CARBAJAL PA-C NEXT INJECTION 03/04/13 Last Documented On 3 2:20PM By LUDMILA TURCIOS MA ; [facility] Depo-Provera 150 MG/ML IM SUSP 11/10/2013 CAN E CARBAJAL PA-C Last Documented On 4 8:58AM By GRETA LYNN MA ; [facility] Tubersol 5 UNIT/0.1ML ID SOLN 10/12/2021 CAN Milton CARBAJAL PA-C Last Documented On 2 11:28AM By FREDERICK MANUEL ; [facility] Depo-Provera 150 MG/ML IM SUSP 08/22/2012 CAN E CARBAJAL PA-C NEXT INJECTION 11/13/12 Last Documented On 3 10:47AM By LUDMILA TURCIOS MA ; [facility] Depo-Provera 150 MG/ML IM SUSP 08/19/2013 CAN E CARBAJAL PA-C next injection 11/10/13 Last Documented On 4 10:14AM By LUDMILA TURCIOS MA ; [facility] Depo-Provera 150 MG/ML IM SUSP 06/02/2012 DENA SMITH MD NEXT INJECTION 08/24/12 Last Documented On 3 5:02PM By LUDMILA TURCIOS MA ; [facility] Depo-Provera 150 MG/ML IM SUSP 05/26/2013 DENA SMITH MD Last Documented On 4 3:56PM By CRISTINA MANUEL ; [facility] Vital Signs Includes: Vital Signs from 04/09/2023 through 04/09/2024 Vital Name 07/29/2023 02:46P 04/09/2023 09: 05A Blood Pressure Sitting L 114/82 BP Cuff Size Large Pulse Rate-Sitting (bpm) 84 67 Respiration Rate (breaths/min) 18 Temp-Oral (F) 98.7 97.9 Height (in) 65 65 Weight (lb) 214 213.2 Body Mass Index 35.6 35.5 Body Surface Area 2 2 Oxygen Saturation (%) 97 Last Documented: On 07/29/2023 2:51PM ; [facility] On 04/09/2023 9:06AM ; [facility] Results Includes: Results from 04/09/2023 through 04/09/2024 SARS COVID-19 FLU A & B [facility] Ordered by ANA LILIA VINCENT DNP on Collected: Reported: 04/09/2023 09:13 Last Documented On 4 9:14AM ; [facility] Reviewed on 04/09/2023; All test results are final unless otherwise noted. COVID Negative N (Normal) Last Documented On 4 9:13AM ; [facility] INFLUENZA A Negative (Negative) N (Normal) Last Documented On 4 9:13AM ; [facility] INFLUENZA B Negative (negative) N (Normal) Last Documented On 4 9:13AM ; [facility] INT. QC ACCEPTABLE? yes N (Normal) Last Documented On 4 9:13AM ; [facility] LOT # & EXP. DATE [id number] 02-12-24 N (Normal) Last Documented On 4 9:13AM ; [facility] Group A strep [facility] Ordered by ANA LILIA VINCENT DNP on Collected: Reported: 04/09/2023 09:12 Last Documented On 4 9:14AM ; [facility] Reviewed on 04/09/2023; All test results are final unless otherwise noted. Rapid Strep Negative N (Normal) Last Documented On 4 9:12AM ; [facility] LOT # AND EXP. DATE [id number] 09-25-25 N (Normal) Last Documented On 4 9:12AM ; [facility] INT. QC ACCEPTABLE? yes N (Normal) Last Documented On 4 9:12AM ; [facility] History of Present Illness History of Present Illness not supported for this document type No History of Present Illness Recorded Social History Description Last Updated Current smoker 07/29/2023 Last Documented On 4 4:48PM ; [facility] Smoking electronic cigarettes 04/09/2023 Last Documented On 4 9:35AM ; [facility] Tobacco non-user 01/09/2023 Last Documented On 3 3:27PM ; [facility] control method not specified 01/02 Last Documented On 3 4:06PM ; [facility] Former smoker Quit 02/202201/02/2023 Last Documented On 3 4:06PM ; [facility] Occupation WORKING AT [employer] 01/02/2023 Last Documented On 3 4:06PM ; [facility] Sexually active 01/02/2023 Last Documented On 3 4:06PM ; [facility] Single ~PARENTS- GONZALO AND SEAN ALDRIDGE ~SON NIGEL 10/2018--FATHER NOT REALLY INVOLVED. ~engaged to Adam Bruno 10/06/22 01/02/2023 Last Documented On 3 4:06PM ; [facility] Smoking Status Unknown Procedures and Surgical History Includes: Procedures from 04/09/2023 through 04/09/2024 Procedures Code Diagnosis Performing Provider Service Location Service Date STREP TEST SCREENING (CLIA WAIVED) 94258 Acute pharyngitis, unspecified ANA LILIA VINCENT [facility] 04/09/2023 Last Documented On 4 5:18PM ; [facility] SARS-CO,SARS-COV-2, INFLUENZA A/B TEST (CLIA WAIVED) 48931 Acute cough ANA LILIA VINCENT [facility] 04/09/2023 Last Documented On 4 5:18PM ; [facility] Medical History Includes: Medical History in patient's chart Description Last Updated LMP: 07/14/2023 07/29/2023 Last Documented On 4 4:48PM ; [facility] Vaccine history 202007/29/2023 Last Documented On 4 4:48PM ; [facility] Depression , anxiety 01/02/2023 Last Documented On 3 4:06PM ; [facility] Heavy OTC analgesic use usually takes ex cedrin and ibuprofen 01/02/2023 Last Documented On 3 4:06PM ; [facility] No fall 01/02/2023 Last Documented On 3 4:06PM ; [facility] No recent change in medical history 12/16 Last Documented On 3 4:06PM ; [facility] Family History Includes: Family History in patient's chart Description Last Updated Family history unchanged 01/02/2023 Last Documented On 3 4:06PM ; [facility] Review of Systems Review of Systems not supported for this document type No Review of Systems Recorded Mental Status Description Anxiety Functional Status No Functional Status Recorded Physical Exam Physical Exam not supported for this document type No Physical Exam Recorded Immunizations Includes: Immunizations in patient's chart Vaccine Dose # Date Site Reaction(s) Status Source COVID-19 Pfizer 1 03/22/2021 Left Arm Complete (Re ported) Patient Last Documented On 2 11:10AM ; [facility] DTaP 1 1995 Complete (Reported) P atient Last Documented On 2 11:36AM ; [facility] DTaP 2 1995 Complete (Reported) P atient Last Documented On 2 11:36AM ; [facility] DTaP 3 02/18/1996 Complete (Reported) P atient Last Documented On 2 11:36AM ; [facility] DTaP 4 02/12/1997 Complete (Reported) P atient Last Documented On 2 11:36AM ; [facility] DTaP 5 10/29/2000 Complete (Reported) P atient Last Documented On 2 11:36AM ; [facility] DTP 1 1995 Complete (Reported) P atient Last Documented On 0 9:31AM ; [facility] DTP 2 1995 Complete (Reported) P atient Last Documented On 0 9:31AM ; [facility] DTP 3 02/18/1996 Complete (Reported) P atient Last Documented On 0 9:31AM ; [facility] DTP 4 02/12/1997 Complete (Reported) P atient Last Documented On 0 9:31AM ; [facility] DTP 5 10/29/2000 Complete (Reported) P atient Last Documented On 0 9:31AM ; [facility] Hep A (Adult dose) 1 06/14/2015 Right Arm Complete (Administered) [facility] Last Documented On 6 10:31AM ; [facility] Hep A (Adult dose) 2 03/07/2016 Right Arm Complete (Administered) [facility] Last Documented On 6 10:46AM ; [facility] Hep B (Engerix-B/Recombivax HB) Ped/Adult 3 dose 1 1995 Complete (Reported) Pa tient Last Documented On 0 9:31AM ; [facility] Hep B (Engerix-B/Recombivax HB) Ped/Adult 3 dose 2 1995 Complete (Reported) Pa tient Last Documented On 0 9:31AM ; [facility] Hep B (Engerix-B/Recombivax HB) Ped/Adult 3 dose 3 02/18/1996 Complete (Reported) Pa tient Last Documented On 0 9:31AM ; [facility] HIb-PRP-OMP (PedvaxHIB) 3 dose 1 1995 Complete (Reported) Patient Last Documented On 0 9:31AM ; [facility] HIb-PRP-OMP (PedvaxHIB) 3 dose 2 1995 Complete (Reported) Patient Last Documented On 0 9:31AM ; [facility] HIb-PRP-OMP (PedvaxHIB) 3 dose 3 02/18/1996 Complete (Reported) Patient Last Documented On 0 9:31AM ; [facility] Influenza (Quadrivalent)36 m o.& older PF 0.5ml (SD) 1 12/10/2019 Left Arm Complete (Reported) Patient Last Documented On 2 11:10AM ; [facility] MMR 1 11/20/1996 Complete (Reported) P atient Last Documented On 0 9:31AM ; [facility] MMR 2 10/29/2000 Complete (Reported) P atient Last Documented On 0 9:31AM ; [facility] MMR 3 11/17/2018 Complete (Reported) P atient Last Documented On 2 11:10AM ; [facility] OPV 1 1995 Complete (Reported) P atient Last Documented On 0 9:31AM ; [facility] OPV 2 1995 Complete (Reported) P atient Last Documented On 0 9:31AM ; [facility] OPV 3 02/18/1996 Complete (Reported) P atient Last Documented On 0 9:31AM ; [facility] OPV 4 10/29/2000 Complete (Reported) P atient Last Documented On 0 9:31AM ; [facility] [employer] COVID-19 Vaccine 1 04/28/2021 Left Arm Complete (Reported) Patient Last Documented On 2 11:10AM ; [facility] Tdap (Boostrix) 1 10/19/2009 Complete (Rep orted) Patient Last Documented On 2 1:36PM ; [facility] Tdap (Boostrix) 2 08/25/2018 Right Deltoid Complet e (Reported) Patient Last Documented On 2 11:10AM ; [facility] Allergies Includes: Active, inactive, and resolved Allergies No Known Allergies Encounters Includes: Encounters from 04/09/2023 through 04/09/2024 Encounter Provider Location Date Check-In Time Check-Out Time Diagnosis PROBLEM VISIT DEJUAN I LUZ [facility] 024 2:37PM 3:18PM Thyroid Function Tests Nonspecific Abnormal Findings COVID SICK VISIT- ESTABLISHED PATIENT ANA LILIA VINCENT [facility] 024 8:53AM 9:29AM Upper Respiratory Infection Insurance Includes: Active Insurance Policies Plan Name Member ID Group # Subscriber Relationship Effect kate Dates 1 - [facility] [id number] ELEAZAR ALDRIDGE Self 2 - MEDICAID [facility] [id number] ELEAZAR ALDRIDGE Capo Clinical Notes Includes: Signed Clinical Notes starting from 04/06/2022 * Progress note Date Encounter Last Documented by 07/29/2023 PROBLEM VISIT Last documented on 07/29/2023; 4:48 PM, [facility]; [facility] Active Problems & Conditions - F32.9 - Depression - F50.81 - Eating Disorder Binge - F41.1 - Generalized Anxiety Disorder - G44.89 - Headache Syndromes - N20.0 - Nephrolithiasis Chief Complaint The Chief Complaint is: Patient is here to discuss lab work done by her Typing Bookkeeper, says she was told her thyroid is overactive, says she just found out she is about 2 weeks ago, History of Present Illness ELEAZAR ALDRIDGE is a 28 year old female. - Allergy list reviewed - Medication list reviewed The patient presented today for concerns regarding low TSH. She states that she had been having heart palpitations, sweating, her hair was thinning and she was depressed/irritable for while. Her OBGYN did some blood work which showed a TSH of 0.257 and T4 of 1.29. She states that she did not know she was the day she got these done (07/14) but has recently found out she is 5-6 weeks . Her LMP was 6 weeks ago, and she and her have been trying to conceive. She is not sure if her symptoms are related to her thyroid or anxiety. She has been on anxiety medication in the past and it seems like they do not ever help both her depression and anxiety, sos he is currently seeing a therapist and trying to help her symptoms that way first. She is taking a vitamin. No other concerns. Current Medication - None Past Medical/Surgical History Reported: No recent change in medical history and LMP: 07/14/2023. Medical: Vaccine history 2020. Depression, anxiety. Medications: Heavy OTC analgesic use usually takes excedrin and ibuprofen. Physical Trauma: No fall. Social History Tobacco use: Smoking electronic cigarettes. Work: Occupation WORKING AT [employer]. Marital: Single PARENTS- GONZALO AND SEAN ALDRIDGE SON NIGEL 10/2018--FATHER NOT REALLY INVOLVED. engaged to Adam Bruno 10/06/22. Sexual: Sexually active. control method not specified. Allergies - No Known Allergies Family History Family history unchanged Review Of Systems Systemic: Feeling poorly (malaise), fever, and night sweats. No recent weight change. No edema. Head: Headache. Cardiovascular: No chest pain or discomfort. Pulmonary: Dyspnea expressed as feeling short of breath. No cough and no wheezing. Gastrointestinal: No nausea, no vomiting, no abdominal pain, and no diarrhea. Endocrine: Excessive sweating. Neurological: Dizziness. Psychological: Anxiety and depression. No sleep disturbances. Physical Findings - Vitals taken 07/29/2023 02:46 pm BP-Sitting L 114/82 mmHg BP Cuff Size Large Pulse Rate-Sitting 84 bpm Respiration Rate 18 per min Temp-Oral 98.7 F Height 65 in Weight 214 lbs Body Mass Index 35.6 kg/m2 Body Surface Area 2 m2 General Appearance: - Well-appearing. - Awake. - Alert. - In no acute distress. Neck: Thyroid: - Not diffusely enlarged. Lymph Nodes: - No adenopathy. Lungs: - Clear to auscultation. Cardiovascular: Heart Rate And Rhythm: - Normal. Murmurs: - No murmurs were heard. Edema: - Not present. Neurological: Motor: - Muscle tone was normal. - Strength was normal. Coordination / Cerebellum: - No coordination/cerebellum abnormalities were noted. Balance: - Normal. Gait And Stance: - Normal. Skin: - Normal. Assessment - [R94.6 - Abnormal results of thyroid function studies] Thyroid function tests revealed nonspecific abnormal findings Therapy - Encouragement to exercise. - Clinical summary provided to patient. - Plan of care reviewed and agreed to. Vaccinations - Did not receive dose of influenza virus vaccine - Did not receive dose of pneumococcal vaccine Plan StartCited - Abnormal results of thyroid function studies Lab: T-3, Total Lab: T-4 (Thyroxine), Free Lab: T S H - FTI T3 TOTAL AND FREE T4 TOATL AND FREE TBG TSH EndCited -Get thyroid labs on or around August 13. discussed today the difference between TSH And T4 and how her T4 was normal, so no treatment at this time with medication is indicated. -Monitor for worsening symptoms. -Advised to call OBGYN to get in for new visit. -Continue with therapy. -If you feel that medication would benefit you please let me know. -Keep taking vitamin. -Only take tylenol and benadryl OTC until taking to OBGYN. -Follow up as scheduled. Practice Management Use of tobacco assessment performed. Care Team - CORONA RAPPW - Business Center Attendant Health Reminders - Assess BMI satisfied 07/29/2023. - Assess Tobacco Use satisfied 07/29/2023. - Follow Up Plan BMI Management satisfied 07/29/2023. * Progress note Date Encounter Last Documented by 04/09/2023 COVID SICK VISIT- ESTABLISHED [facility]O Last documented on 04/09/2023; 9:35 AM, ANA LILIA VINCENT DNP; [facility] Chief Complaint The Chief Complaint is: Cough, [...] Negative Normal LOT # AND EXP. DATE [id number] 09-25-25 Normal INT. QC ACCEPTABLE? yes Normal - Test: SARS COVID-19 FLU A & B Report Date: 04/09/2023 COVID Negative Normal INFLUENZA A Negative Normal INFLUENZA B Negative Normal INT. QC ACCEPTABLE? yes Normal LOT # & EXP. DATE [id number] 02-12-24 Normal Assessment - [J06.9 - Acute [...]
--- OUTSIDE RECORDS SUMMARY | 2024-04-09 04:11 | XMS_ITS | Clinical Summary ---
Author Organization [facility] Address [address] [place] [address] Phone Care Team Providers Care Inspector Balance Bridge Name Role Phone DENA SMITH MD Primary Care Provider [phone], LINDA Shi Unavailab le Reason for Visit and Chief Complaint * PHONE CALL Problems Includes: Problems addressed during this encounter and other active Problems Current Visit Onset Date Resolved Date Provider Conditio n Status Nephrolithiasis 01/23/2012 CAN SALOMON- Blake Active Last Documented On 3 2:47PM ; [facility] Past Visits Onset Date Resolved Date Provider Condition Status Headache Syndromes 07/25/2021 CAN CARBAJAL PA-C Active Last Documented On 2 3:50PM ; [facility] Generalized Anxiety Disorder 07/18/2020 LINDA SHERMAN LCSW Active Last Documented On 1 8:45AM ; [facility] Eating Disorder Binge 11/27/2019 AISHA MARQUEZ PMHNP-BC [employer]-BC Active Last Documented On 0 1:15PM ; [facility] Depression 05/02/2012 DENA SMITH MD Act kate Last Documented On 3 4:17PM ; [facility] Note: Unchanged Plan of Treatment Pending Tests Order Diagnosis Results Due Ordering P rovider Radiology @ [facility] - CT Scan Renal Survey CT (R/O STONE) Calculus of kidney 04/01/23 CAN CARBAJAL PA-C Last Documented On 3 12:21PM ; [facility] Assessments Includes: Assessments from this encounter Findings - [N20.0 - Calculus of kidney] Nephrolithiasis - Last Documented On 01/31/2023 12:12PM ; [facility] Medical Equipment - Implanted Devices Includes: Current Devices No Medical Equipment Recorded Medications Includes: Medications discussed during this encounter and other current Medications New / Renewed during this visit CAN CARBAJAL PA-C on 01/31/2023 Flomax 0.4 MG Oral Capsule Provider: CAN Lozano 30 day supply: 30 capsule, 0 refills Diagnosis: Calculus of kidney One tablet daily May use generic. Pharmacy: [address], [id number] - Last Documented On 03/05/2023 2:40PM By FREDERICK MANUEL ; [facility] Medications Administered Includes: Administered Medications from this encounter No Administered Medications Recorded Results Includes: Results discussed during this encounter No Results Recorded For Specified Dates History of Present Illness Includes: History of Present Illness from this encounter No History of Present Illness Recorded Social History Description Last Updated Tobacco non-user 01/09/2023 Last Documented On 3 12:12PM ; [facility] control method not specified 01/02 Last Documented On 3 12:12PM ; [facility] Former smoker Quit 02/202201/02/2023 Last Documented On 3 12:12PM ; [facility] Occupation WORKING AT [employer] 01/02/2023 Last Documented On 3 12:12PM ; [facility] Sexually active 01/02/2023 Last Documented On 3 12:12PM ; [facility] Single ~PARENTS- GONZALO AND SEAN ALDRIDGE ~SON NIGEL 10/2018--FATHER NOT REALLY INVOLVED. ~engaged to Adam Bruno 10/06/22 01/02/2023 Last Documented On 3 12:12PM ; [facility] Smoking Status Unknown Medical History Includes: Medical History addressed during this encounter Description Last Updated LMP: 01/20/2023 07/29/2023 Last Documented On 3 12:12PM ; [facility] Depression , anxiety 01/02/2023 Last Documented On 3 12:12PM ; [facility] Heavy OTC analgesic use usually takes ex cedrin and ibuprofen 01/02/2023 Last Documented On 3 12:12PM ; [facility] No fall 01/02/2023 Last Documented On 3 12:12PM ; [facility] No recent change in medical history 12/16 Last Documented On 3 12:12PM ; [facility] Family History Includes: Family History addressed during this encounter Description Last Updated Family history unchanged 01/02/2023 Last Documented On 3 12:12PM ; [facility] Review of Systems Includes: Review of Systems from this encounter No Review of Systems Recorded Mental Status Includes: Mental Status from this encounter No Mental Status Recorded Functional Status Includes: Functional Status from this encounter No Functional Status Recorded Physical Exam Includes: Physical Exam from this encounter No Physical Exam Recorded Allergies Includes: Active Allergies No Known Allergies Encounters Encounter Provider Location Date Check-In Time Check-Out Time Diagnosis * PHONE CALL CAN CARBAJAL PA-C 3 11:59AM 11:59PM Nephrolithiasis Insurance Includes: Active Insurance Policies Plan Name Member ID Group # Subscriber Relationship Effect kate Dates 1 - [facility] [id number] ELEAZAR Roslyn Scanlon 2 - MEDICAID [facility] [id number] ELEAZAR Scanlon Clinical Notes Includes: Clinical Notes from this encounter * Progress note Date Encounter Last Documented by 01/31/2023 * PHONE CALL Last documented on 01/31/2023; 12:12 PM, CAN CARBAJAL PA-C; [facility] Active Problems & Conditions - F32.9 - Depression - F50.81 - Eating Disorder Binge - F41.1 - Generalized Anxiety Disorder - G44.89 - Headache Syndromes - N20.0 - Nephrolithiasis Chief Complaint Phone Call - Chief Concern: reason for call: pt is still having constant pain in her uterus, blood in urine, wonders if there is a stone stuck. pt would like to know what she needs to do. pt phone # for return call: [phone] Date/Initials: 01/31 [facility]. Current Medication - None Past Medical/Surgical History Reported: No recent change in medical history and LMP: 01/20/2023. Medical: Depression, anxiety. Medications: Heavy OTC analgesic use usually takes excedrin and ibuprofen. Physical Trauma: No fall. Social History Tobacco use: Former smoker Quit 02/2022. Work: Occupation WORKING AT [email or web address]. Marital: Single PARENTS- GONZALO AND SEAN ALDRIDGE SON NIGEL 10/2018--FATHER NOT REALLY INVOLVED. engaged to Adam Bruno 10/06/22. Sexual: Sexually active. control method not specified. Allergies - No Known Allergies Family History Family history unchanged Assessment - [N20.0 - Calculus of kidney] Nephrolithiasis Plan StartCited - Calculus of kidney Radiology @ [facility]/CT Scan: Renal Survey CT (R/O STONE) Flomax 0.4 MG capsule One tablet daily May use generic., 30 days, 0 refills EndCited StartCited - Other *BETZY noashley I sent in some flomax for her to take--opens the urinary tract. Also ordered another CT to check for more stones. Push water and urinate often EndCited Care Team - LINDA SHERMAN LCSW - [employer]
--- OUTSIDE RECORDS SUMMARY | 2024-04-09 04:11 | XMS_ITS | Clinical Summary ---
Author Organization [facility] Address [address] [place] [address] Phone Care Team Providers Care Shingle Shearing Machine Operator Name Role Phone SARAH ESQUIVEL, DENA Primary Care Provider [phone] JETERW, LINDA Shi Unavailab le Reason for Visit and Chief Complaint The Chief Complaint is: Patient is here to discuss lab work done by her Home Organizer, says she was told her thyroid is overactive, says she just found out she is about 2 weeks ago, Problems Includes: Problems addressed during this encounter and other active Problems All Visits Onset Date Resolved Date Provider Condition S tatus Headache Syndromes 07/25/2021 CAN CARBAJAL PA-C Active Last Documented On 2 3:50PM ; [facility] Generalized Anxiety Disorder 07/18/2020 LINDA SHERMAN LCSW Active Last Documented On 1 8:45AM ; [facility] Eating Disorder Binge 11/27/2019 AISHA MARQUEZ PMHNP-BC SIFTER OPERATOR-BC Active Last Documented On 0 1:15PM ; [facility] Depression 05/02/2012 DENA SMITH MD Act kate Last Documented On 3 4:17PM ; [facility] Note: Unchanged Nephrolithiasis 01/23/2012 CAN Lozano Active Last Documented On 3 2:47PM ; [facility] Plan of Treatment -Get thyroid labs on or around August [...] taking to OBGYN. -Follow up as scheduled. - Last Documented On 07/29/2023 4:48PM ; [facility] Pending Tests Order Diagnosis Results Due Ordering Gera perez Lab T-3, Total 07/29/23 DEJUAN aFby MATA ANS SIFTER OPERATOR-BC Last Documented On 4 3:14PM ; [facility] Lab T-4 (Thyroxine), Free 07/29/23 MELINDA TATUM LOERA SIFTER OPERATOR-BC Last Documented On 4 3:14PM ; [facility] Lab T S H 08/12/23 DEJUAN MATA ANS SIFTER OPERATOR-BC Last Documented On 4 3:14PM ; [facility] Assessments Includes: Assessments from this encounter Findings - [R94.6 - Abnormal results of thyroid function studies] Thyroid function tests revealed nonspecific abnormal findings - Last Documented On 07/29/2023 4:48PM ; [facility] Medical Equipment - Implanted Devices Includes: Current Devices No Medical Equipment Recorded Medications Includes: Medications discussed during this encounter and other current Medications Discontinued / Stopped on this date ANA LILIA VINCENT DNP on 04/09/2023 Medrol 4 MG Oral Tablet Therapy Pack Prov ider: ANA LILIA VINCENT DNP Diagnosis: Acute cough Last Documented On 4 2:48PM By CAT MANUEL ; [facility] Uvjxakqdgm-TZCQ-Xeikjvxa 50- 325-40 MG Oral Tablet Provider: CAN CARBAJAL PA-C Diagnosis: Tension-type hea dache, unspecified, intractable Last Documented On 4 2:48PM By CAT MANUEL ; [facility] Cyclobenzaprine HCl 5 MG Ora l Tablet Provider: CAN CARBAJAL PA-C Diagnosis: Tension-type hea dache, unspecified, intractable Last Documented On 4 2:48PM By CAT MANUEL ; [facility] Medications Administered Includes: Administered Medications from this encounter No Administered Medications Recorded Vital Signs Includes: Vital Signs from this encounter Vital Name 07/29/2023 02:46P Blood Pressure Sitting L 114/82 BP Cuff Size Large Pulse Rate-Sitting (bpm) 84 Respiration Rate (breaths/min) 18 Temp-Oral (F) 98.7 Height (in) 65 Weight (lb) 214 Body Mass Index 35.6 Body Surface Area 2 Last Documented: On 07/29/2023 2:51PM ; [facility] Results Includes: Results discussed during this encounter No Results Recorded For Specified Dates History of Present Illness Includes: History of Present Illness from this encounter DEENA ALDRIDGE is a 28 year old female. [...] is taking a vitamin. No other concerns. Social History Description Last Updated Current smoker 07/29/2023 Last Documented On 4 4:48PM ; [facility] Smoking electronic cigarettes 04/09/2023 Last Documented On 4 2:45PM ; [facility] control method not specified 01/02 Last Documented On 4 2:45PM ; [facility] Occupation WORKING AT [employer] 01/02/2023 Last Documented On 4 2:45PM ; [facility] Sexually active 01/02/2023 Last Documented On 4 2:45PM ; [facility] Single ~PARENTS- GONZALO AND SEAN ALDRIDGE ~LILIANA MANNING 10/2018--FATHER NOT REALLY INVOLVED. ~engaged to Adam Jackmings 10/06/22 01/02/2023 Last Documented On 4 2:45PM ; [facility] Smoking Status Unknown Procedures and Surgical History Includes: Procedures from this encounter Procedures Code Diagnosis Performing Provider Service L ocation Service Date plan of care reviewed and agreed to Last Documented On 4 4:47PM ; [facility] use of tobacco assessment performed 1000F Last Documented On 4 2:52PM ; [facility] encouragement to exercise Last Documented On 4 4:47PM ; [facility] Clinical summary provided to patient Last Documented On 4 4:47PM ; [facility] Medical History Includes: Medical History addressed during this encounter Description Last Updated LMP: 07/14/2023 07/29/2023 Last Documented On 4 4:48PM ; [facility] Vaccine history 202007/29/2023 Last Documented On 4 4:48PM ; [facility] Depression , anxiety 01/02/2023 Last Documented On 4 2:45PM ; [facility] Heavy OTC analgesic use usually takes ex cedrin and ibuprofen 01/02/2023 Last Documented On 4 2:45PM ; [facility] No fall 01/02/2023 Last Documented On 4 2:45PM ; [facility] No recent change in medical history 12/16 Last Documented On 4 2:45PM ; [facility] Family History Includes: Family History addressed during this encounter Description Last Updated Family history unchanged 01/02/2023 Last Documented On 4 2:45PM ; [facility] Review of Systems Includes: Review of Systems from this encounter Systemic: Feeling poorly (malaise), fever, and night sweats. No recent weight change. No edema. Head: Headache. Cardiovascular: No chest pain or discomfort. Pulmonary: Dyspnea expressed as feeling short of breath. No cough and no wheezing. Gastrointestinal: No nausea, no vomiting, no abdominal pain, and no diarrhea. Endocrine: Excessive sweating. Neurological: Dizziness. Psychological: Anxiety and depression. No sleep disturbances. Mental Status Includes: Mental Status from this encounter Description Anxiety Functional Status Includes: Functional Status from this encounter No Functional Status Recorded Physical Exam Includes: Physical Exam from this encounter Allergies Includes: Active Allergies No Known Allergies Encounters Encounter Provider Location Date Check-In Time Check-Out Time Diagnosis PROBLEM VISIT DEJUAN LOERA [facility] 024 2:37PM 3:18PM Thyroid Function Tests Nonspecific Abnormal Findings Insurance Includes: Active Insurance Policies Plan Name Member ID Group # Subscriber Relationship Effect kate Dates 1 - [facility] [id number] ELEAZAR ALDRIDGE Self 2 - MEDICAID [facility] [id number] ELEAZAR Scanlon Clinical Notes Includes: Clinical Notes from this encounter * Progress note Date Encounter Last Documented by 07/29/2023 PROBLEM VISIT Last documented on 07/29/2023; 4:48 PM, DEJUAN LOERA [facility]; [facility] Active Problems & Conditions - F32.9 - Depression - F50.81 - Eating Disorder Binge - F41.1 - Generalized Anxiety Disorder - G44.89 - Headache Syndromes - N20.0 - Nephrolithiasis Chief Complaint The Chief Complaint is: Patient is here to discuss lab work done by her Home Organizer, says she was told her thyroid is [...] Smoking electronic cigarettes. Work: Occupation WORKING AT [employer]. Marital: Single PARENTS- YEISON ALDRIDGE SON NIGEL 10/2018--FATHER NOT REALLY INVOLVED. [...] of tobacco assessment performed. Care Team - LINDA SHERMAN LCSW - Tube Room Supervisor Health Reminders - Assess BMI satisfied 07/29/2023. - Assess Tobacco Use satisfied 07/29/2023. - Follow Up Plan BMI Management satisfied 07/29/2023.
--- OUTSIDE RECORDS SUMMARY | 2024-04-09 04:11 | XMS_ITS | Clinical Summary ---
Author Organization [facility] Address [address] [place] [address] Phone Care Team Providers Care Insulation Applicator Name Role Phone DENA SMITH MD Primary Care Provider [phone] MENDIETA, LINDA Shi Unavailab le Reason for Visit and Chief Complaint The Chief Complaint is: Migraines. Pt states for the past 3 weeks she has had a migraine every day and if it is not a migraine then she has a reqular ALSTON. Pt has been taking excedrin and ibp Problems Includes: Problems addressed during this encounter and other active Problems All Visits Onset Date Resolved Date Provider Condition S tatus Headache Syndromes 07/25/2021 CAN CARBAJAL PA-C Active Last Documented On 2 3:50PM ; [facility] Generalized Anxiety Disorder 07/18/2020 LINDA SHERMAN LCSW Active Last Documented On 1 8:45AM ; [facility] Eating Disorder Binge 11/27/2019 AISHA MARQUEZ PMHNP-BC CONVENTIONS RESERVATIONIST-BC Active Last Documented On 0 1:15PM ; [facility] Depression 05/02/2012 DENA SMITH MD Act kate Last Documented On 3 4:17PM ; [facility] Note: Unchanged Nephrolithiasis 01/23/2012 CAN Lozano Active Last Documented On 3 2:47PM ; [facility] Plan of Treatment - Return to the clinic if condition worsens or new symptoms arise - Last Documented On 03/05/2023 3:06PM ; [facility] - Follow-up visit as needed - Last Documented On 03/05/2023 3:06PM ; [facility] - Clinical summary provided to patient . Plan discussed and patient/parent/caregiver states understanding - Last Documented On 03/05/2023 3:06PM ; [facility] Muscle relaxers as needed. Butalbital as needed for tension headaches. Local heat to neck, massage. Call sooner if needed. ER if condition severe. - Last Documented On 03/05/2023 3:06PM ; [facility] Pending Tests Order Diagnosis Results Due Ordering Gera perez Radiology @ [facility] - CT Scan Renal Survey CT (R/O STONE) Calculus of kidney 04/01/23 CAN CARBAJAL PA-C Last Documented On 3 12:21PM ; [facility] Assessments Includes: Assessments from this encounter Findings - [G44.201 - Tension-type headache, unspecified, intractable] Tension-type headache - Last Documented On 03/05/2023 3:06PM ; [facility] Medical Equipment - Implanted Devices Includes: Current Devices No Medical Equipment Recorded Medications Includes: Medications discussed during this encounter and other current Medications Discontinued / Stopped on this date CAN CARBAJAL PA-C on 01/31/2023 Flomax 0.4 MG Oral Capsule Provider: Yenifer CARBAJAL PA-C Diagnosis: Calculus of kidn ey Last Documented On 03/05/2023 2:40PM By FREDERICK MANUEL ; [facility] New / Renewed during this visit CAN CARBAJAL PA-C on 03/05/2023 Eeituyhsht-IYDM-Sysakbye 50- 325-40 MG Oral Tablet Provider: CAN CARBAJAL PA-C 5 day supply: 20 tablet, 0 refills Diagnosis: Tension-type headache, unspecified, intractable 1 every 6 hours as needed; m ay substitute for caps if needed. Pharmacy: [address], [id number] - Last Documented On 4 2:48PM By CAT MANUEL ; [facility] Cyclobenzaprine HCl 5 MG Ora l Tablet Provider: CAN CARBAJAL PA-C 5 day supply: 15 tablet, 0 refills Diagnosis: Tension-type headache, unspecified, intractable 1-2 tabs BID PRN muscle spasms. Pharmacy: [address], [id number] - Last Documented On 4 2:48PM By CAT MANUEL ; [facility] Medications Administered Includes: Administered Medications from this encounter No Administered Medications Recorded Vital Signs Includes: Vital Signs from this encounter Vital Name 03/05/2023 02:37P Blood Pressure Sitting L 126/84 Pulse Rate-Sitting (bpm) 94 Respiration Rate (breaths/min) 21 Temp-Temporal 96.6 Height (in) 64 Weight (lb) 224 Body Mass Index 38.4 Body Surface Area 2.1 Oxygen Saturation (%) 99 Last Documented: On 03/05/2023 2:42PM ; [facility] Results Includes: Results discussed during this encounter No Results Recorded For Specified Dates History of Present Illness Includes: History of Present Illness from this encounter DEENA ALDRIDGE is a 27 year old female. - Allergy list reviewed - Medication list reviewed - Feeling fine - Frontal headache - Which feels like a band around the head pain is throbbing, squeezing sensation. Severity depends on the day - Recurrent - No excruciating headache - No sinus pain - No neck pain - Anxiety --about the same; not interfering with life - Depression --about the same; not interfering with life - Initial insomnia - No insomnia Excedrin migraine and ibupr helped initially but now it's not helping. Having hard time falling asleep which started about 3 wks ago. Stress level is the same Social History Description Last Updated Tobacco non-user 01/09/2023 Last Documented On 3 2:37PM ; [facility] control method not specified 01/02 Last Documented On 3 2:37PM ; [facility] Former smoker Quit 02/202201/02/2023 Last Documented On 3 2:37PM ; [facility] Occupation WORKING AT [employer] 01/02/2023 Last Documented On 3 2:37PM ; [facility] Sexually active 01/02/2023 Last Documented On 3 2:37PM ; [facility] Single ~PARENTS- GONZALO AND SEAN ALDRIDGE ~SON NIGEL 10/2018--FATHER NOT REALLY INVOLVED. ~engaged to Adam Bruno 10/06/22 01/02/2023 Last Documented On 3 2:37PM ; [facility] Smoking Status Unknown Procedures and Surgical History Includes: Procedures from this encounter Procedures Code Diagnosis Performing Provider Service L ocation Service Date review of medications documented 1160F Last Documented On 3 2:42PM ; [facility] Medical History Includes: Medical History addressed during this encounter Description Last Updated LMP: 02/15/2023 03/05/2023 Last Documented On 3 3:06PM ; [facility] Depression , anxiety 01/02/2023 Last Documented On 3 2:37PM ; [facility] Heavy OTC analgesic use usually takes ex cedrin and ibuprofen 01/02/2023 Last Documented On 3 2:37PM ; [facility] No fall 01/02/2023 Last Documented On 3 2:37PM ; [facility] No recent change in medical history 12/16 Last Documented On 3 2:37PM ; [facility] Family History Includes: Family History addressed during this encounter Description Last Updated Family history unchanged 01/02/2023 Last Documented On 3 2:37PM ; [facility] Review of Systems Includes: Review of Systems from this encounter Systemic: No edema. Head: Headache. Eyes: Vision problems does have occ blurred vision. Last eye exam about 6 mo ago. Has reading glasses but doesn't wear them often. No photophobia. Cardiovascular: No chest pain or discomfort. Pulmonary: No shortness of breath. Gastrointestinal: Nausea when pain is intense. No vomiting. Neurological: No dizziness. Mental Status Includes: Mental Status from this encounter Description Cognitive functioning was no rmal Thought processes were not i mpaired Anxiety --about the same; no t interfering with life The thought content revealed no impairment Functional Status Includes: Functional Status from this encounter No Functional Status Recorded Physical Exam Includes: Physical Exam from this encounter Allergies Includes: Active Allergies No Known Allergies Encounters Encounter Provider Location Date Check-In Time Check-Out Time Diagnosis PROBLEM VISIT CAN CARBAJAL PA-C [facility] [place] 03/05/20 23 2:35PM 3:03PM Tension-type Headache Insurance Includes: Active Insurance Policies Plan Name Member ID Group # Subscriber Relationship Effect kate Dates 1 - [facility] [id number] ELEAZAR ALDRIDGE Self 2 - MEDICAID [facility] [id number] ELEAZAR ALDRIDGE Self Clinical Notes Includes: Clinical Notes from this encounter * Progress note Date Encounter Last Documented by 03/05/2023 PROBLEM VISIT Last documented on 03/05/2023; 3:06 PM, CAN CARBAJAL PA-C; [facility] Active Problems & Conditions - F32.9 - Depression - F50.81 - Eating Disorder Binge - F41.1 - Generalized Anxiety Disorder - G44.89 - Headache Syndromes - N20.0 - Nephrolithiasis Chief Complaint The Chief Complaint is: Migraines. Pt states for the past 3 weeks she has had a migraine every day and if it is not a migraine then she has a reqular ALSTON. Pt has been taking excedrin and ibp. History of Present Illness ELEAZAR ALDRIDGE is a 27 year old female. - Allergy list reviewed - Medication list reviewed - Feeling fine - Frontal headache - Which feels like a band around the head pain is throbbing, squeezing sensation. Severity depends on the day - Recurrent - No excruciating headache - No sinus pain - No neck pain - Anxiety --about the same; not interfering with life - Depression --about the same; not interfering with life - Initial insomnia - No insomnia Excedrin migraine and ibupr helped initially but now it's not helping. Having hard time falling asleep which started about 3 wks ago. Stress level is the same Current Medication - None Past Medical/Surgical History Reported: No recent change in medical history and LMP: 02/15/2023. Medical: Depression, anxiety. Medications: Heavy OTC analgesic use usually takes excedrin and ibuprofen. Physical Trauma: No fall. Social History Tobacco use: Former smoker Quit 02/2022. Work: Occupation WORKING [employer]. Marital: Single PARENTS- YEISON ALDRIDGE SON NIGEL 10/2018--FATHER NOT REALLY INVOLVED. engaged to Adam Bruno 10/06/22. Sexual: Sexually active. control method not specified. Allergies - No Known Allergies Family History Family history unchanged Review Of Systems Systemic: No edema. Head: Headache. Eyes: Vision problems does have occ blurred vision. Last eye exam about 6 mo ago. Has reading glasses but doesn't wear them often. No photophobia. Cardiovascular: No chest pain or discomfort. Pulmonary: No shortness of breath. Gastrointestinal: Nausea when pain is intense. No vomiting. Neurological: No dizziness. Physical Findings - Vitals taken 03/05/2023 02:37 pm BP-Sitting L 126/84 mmHg Pulse Rate-Sitting 94 bpm Respiration Rate 21 per min Temp-Temporal 96.6 F Height 64 in Weight 224 lbs Body Mass Index 38.4 kg/m2 Body Surface Area 2.1 m2 Oxygen Saturation 99 % Standard Measurements: - Patient was observed to be obese. General Appearance: - Well developed. - Well nourished. - In no acute distress. Neck: Suppleness: - Neck demonstrated no decrease in suppleness. Thyroid: - Showed no abnormalities. Eyes: General/bilateral: Extraocular Movements: - Normal. Pupils: - PERRLA. Ears: General/bilateral: Tympanic Membrane: - Normal. Nose: General/bilateral: Sinus Tenderness: - No sinus tenderness. Lungs: - Clear to auscultation. Cardiovascular: Heart Rate And Rhythm: - Normal. Murmurs: - No murmurs were heard. Musculoskeletal System: Cervical Spine: General/bilateral: - Cervical spine showed no abnormalities. Neurological: - Cognitive functioning was normal. Speech: - Normal. Cranial Nerves: - Normal. Balance: - Normal. Reflexes: - Biceps reflex was normal. Psychiatric: Appearance: - Normal. Attitude: - Not abnormal. Mood: - Euthymic. Affect: - Normal. Thought Processes: - Not impaired. Thought Content: - Revealed no impairment. Assessment - [G44.201 - Tension-type headache, unspecified, intractable] Tension-type headache Plan StartCited - Tension-type headache, unspecified, intractable Cyclobenzaprine HCl 5 MG tablet 1-2 tabs BID PRN muscle spasms., 5 days, 0 refills Aneirnjqdp-CEAZ-Qyeqfhvb 50-325-40 MG tablet 1 every 6 hours as needed; may substitute for caps if needed., 5 days, 0 refills EndCited - Return to the clinic if condition worsens or new symptoms arise - Follow-up visit as needed - Clinical summary provided to patient . Plan discussed and patient/parent/caregiver states understanding Muscle relaxers as needed. Butalbital as needed for tension headaches. Local heat to neck, massage. Call sooner if needed. ER if condition severe. Practice Management Review of medications documented. Care Team - CORONA RAPPW - Naturopath
--- OUTSIDE RECORDS SUMMARY | 2024-04-09 04:12 | XMS_ITS | Clinical Summary ---
Author Organization [facility] Address [address] [place] [address] Phone Care Team Providers Care Packing And Final Assembly Supervisor Name Role Phone DENA SMITH MD Primary Care Provider [phone], LINDA Mcgowan Unavailable Unavailab le Reason for Visit and Chief Complaint The Chief Complaint is: [facility] ER F/U from 01/11 for Kidney stones. Pt states she feels better Problems Includes: Problems addressed during this encounter and other active Problems Current Visit Onset Date Resolved Date Provider Conditio n Status Nephrolithiasis 01/23/2012 CAN Lozano Active Last Documented On 3 2:47PM ; [facility] Past Visits Onset Date Resolved Date Provider Condition Status Headache Syndromes 07/25/2021 CAN CARBAJAL PA-C Active Last Documented On 2 3:50PM ; [facility] Generalized Anxiety Disorder 07/18/2020 LINDA SHERMAN LCSW Active Last Documented On 1 8:45AM ; [facility] Eating Disorder Binge 11/27/2019 AISHA MARQUEZ PMHNP-BC CALL CENTER COORDINATOR-BC Active Last Documented On 0 1:15PM ; [facility] Depression 05/02/2012 DENA SMITH MD Act kate Last Documented On 3 4:17PM ; [facility] Note: Unchanged Plan of Treatment - Follow-up visit as needed with an office visit. - Last Documented On 01/22/2023 3:13PM ; [facility] Discussed referral to urology in the future if needed. Cont to drink plenty of water, urinate often. Call sooner if needed. ER if condition severe - Last Documented On 01/22/2023 3:13PM ; [facility] Pending Tests Order Diagnosis Results Due Ordering Gera ana Radiology @ [facility] - CT Scan Renal Survey CT (R/O STONE) Calculus of kidney 04/01/23 CAN CARBAJAL PA-C Last Documented On 12:21PM ; [facility] Assessments Includes: Assessments from this encounter Findings - [N20.0 - Calculus of kidney] Nephrolithiasis - Last Documented On 01/22/2023 3:13PM ; [facility] Medical Equipment - Implanted Devices Includes: Current Devices No Medical Equipment Recorded Medications Includes: Medications discussed during this encounter and other current Medications Discontinued / Stopped on this date on 01/11/2023 Cefdinir 300 MG Oral Capsule Provider: Diagnosis: Last Documented On 01/22/2023 2:31PM By FREDERICK MANUEL ; [facility] Ketorolac Tromethamine 10 MG Oral Tablet Provider: Diagnosis: Last Documented On 01/22/2023 2:31PM By FREDERICK MANUEL ; [facility] Macrobid 100 MG Oral Capsule Provider: ANA LILIA Alvarado NP Diagnosis: Urinary tract in fection, site not specified Last Documented On 01/22/2023 2:31PM By FREDERICK MANUEL ; [facility] Topiramate 25 MG Oral Tablet Provider: CAN CARBAJAL PA-C Diagnosis: Other headache s yndrome Last Documented On 01/22/2023 2:32PM By FREDERICK MANUEL ; [facility] hydrOXYzine Pamoate 25 MG Oral Capsule Provider: CAN Lozano Diagnosis: Generalized anxi ety disorder Last Documented On 01/22/2023 2:32PM By FREDERICK MANUEL ; [facility] Medications Administered Includes: Administered Medications from this encounter No Administered Medications Recorded Vital Signs Includes: Vital Signs from this encounter Vital Name 01/22/2023 02:23P Blood Pressure Sitting L 122/78 Pulse Rate-Sitting (bpm) 81 Respiration Rate (breaths/min) 16 Temp-Temporal 97.1 Height (in) 64 Weight (lb) 215.5 Body Mass Index 37 Body Surface Area 2 Oxygen Saturation (%) 99 Last Documented: On 01/22/2023 2:34PM ; [facility] Results Includes: Results discussed during this encounter URINALYSIS [facility] Ordered by CAN CARBAJAL PA-C on 09/2022 Collected: Reported: 01/22/2023 14:51 Last Documented On 3 2:51PM ; [facility] Reviewed on 01/22/2023; All test results are final unless otherwise noted. Glucose NEGATIVE (negaive) N (Normal) Last Documented On 3 2:51PM ; [facility] Bilirubin NEGATIVE (Negative) N (Normal) Last Documented On 3 2:51PM ; [facility] Ketones NEGATIVE (Negative) N (Normal) Last Documented On 3 2:51PM ; [facility] Sp Pioneer NEGATIVE (1.015-1.030) N (Normal) Last Documented On 3 2:51PM ; [facility] Blood LARGE--PT ON PERIOD (Negative) A (Abnormal) Last Documented On 3 2:51PM ; [facility] pH 6.5 (5-9) N (Normal) Last Documented On 3 2:51PM ; [facility] Protein 30MG (Negative) A (Abnormal) Last Documented On 3 2:51PM ; [facility] Urobilinogen NEGATIVE (Negative) N (Normal) Last Documented On 3 2:51PM ; [facility] Nitrite NEGATIVE (Negative) N (Normal) Last Documented On 3 2:51PM ; [facility] Leukocytes NEGATIVE (Negative) N (Normal) Last Documented On 3 2:51PM ; [facility] History of Present Illness Includes: History of Present Illness from this encounter DEENA ALDRIDGE is a 27 year old female. - Allergy list reviewed - Medication list reviewed - Feeling fine - Normal appetite - No vomiting - No abdominal pain - No diarrhea - No constipation - No hematuria - No foul-smelling urine - No increase in urinary frequency - No dysuria This is the third time pt has had kidney stones--first time in high school, second when she was with her son. Did suffer a miscarriage recently which may have triggered this one--largest up to 7mm. Feeling fine now. Urinating fine. ER doc never sent in the 2 medications for her but sxs now resolved Social History Description Last Updated Tobacco non-user 01/09/2023 Last Documented On 3 2:23PM ; [facility] control method not specified 01/02 Last Documented On 3 2:23PM ; [facility] Former smoker Quit 02/202201/02/2023 Last Documented On 3 2:23PM ; [facility] Occupation WORKING AT [employer] 01/02/2023 Last Documented On 3 2:23PM ; [facility] Sexually active 01/02/2023 Last Documented On 3 2:23PM ; [facility] Single ~PARENTS- GONZALO AND SEAN ALDRIDGE ~SON NIGEL 10/2018--FATHER NOT REALLY INVOLVED. ~engaged to Adam Bruno 10/06/22 01/02/2023 Last Documented On 3 2:23PM ; [facility] Smoking Status Unknown Procedures and Surgical History Includes: Procedures from this encounter Procedures Code Diagnosis Performing Provider Service L ocation Service Date education and instructions Last Documented On 3 3:11PM ; [facility] discharge medications reconciled with current sc dication list 1111F Last Documented On 3 2:34PM ; [facility] review of medications documented 1160F Last Documented On 3 2:34PM ; [facility] Medical History Includes: Medical History addressed during this encounter Description Last Updated LMP: 01/20/2023 01/22/2023 Last Documented On 3 3:13PM ; [facility] Depression , anxiety 01/02/2023 Last Documented On 3 2:23PM ; [facility] No fall 01/02/2023 Last Documented On 3 2:23PM ; [facility] No recent change in medical history 12/16 Last Documented On 3 2:23PM ; [facility] Family History Includes: Family History addressed during this encounter Description Last Updated Family history unchanged 01/02/2023 Last Documented On 3 2:23PM ; [facility] Review of Systems Includes: Review of Systems from this encounter Systemic: No edema. Head: No headache. Cardiovascular: No chest pain or discomfort. Pulmonary: No shortness of breath. Neurological: No dizziness. Mental Status Includes: Mental Status from this encounter No Mental Status Recorded Functional Status Includes: Functional Status from this encounter No Functional Status Recorded Physical Exam Includes: Physical Exam from this encounter Allergies Includes: Active Allergies No Known Allergies Encounters Encounter Provider Location Date Check-In Time Check-Out Time Diagnosis EMERGENCY ROOM FOLLOW[facility] [facility] CAN CARBAJAL PA-C [facility] 023 2:21PM 2:59PM Nephrolithiasis Insurance Includes: Active Insurance Policies Plan Name Member ID Group # Subscriber Relationship Effect kate Dates 1 - [facility] [id number] ELEAZAR ALDRIDGE Self 2 - MEDICAID [facility] [id number] ELEAZAR ALDRIDGE Self Clinical Notes Includes: Clinical Notes from this encounter * Progress note Date Encounter Last Documented by 01/22/2023 EMERGENCY ROOM [facility] PT Last documented on 01/22/2023; 3:13 PM, CAN CARBAJAL PA-C; [facility] Active Problems & Conditions - F32.9 - Depression - F50.81 - Eating Disorder Binge - F41.1 - Generalized Anxiety Disorder - G44.89 - Headache Syndromes - N20.0 - Nephrolithiasis Chief Complaint The Chief Complaint is: [facility] ER F/U from 01/11 for Kidney stones. Pt states she feels better. History of Present Illness ELEAZAR ALDRIDGE is a 27 year old female. - Allergy list reviewed - Medication list reviewed - Feeling fine - Normal appetite - No vomiting - No abdominal pain - No diarrhea - No constipation - No hematuria - No foul-smelling urine - No increase in urinary frequency - No dysuria This is the third time pt has had kidney stones--first time in high school, second when she was with her son. Did suffer a miscarriage recently which may have triggered this one--largest up to 7mm. Feeling fine now. Urinating fine. ER doc never sent in the 2 medications for her but sxs now resolved Current Medication - None Past Medical/Surgical History Reported: No recent change in medical history and LMP: 01/20/2023. Medical: Depression, anxiety. Physical Trauma: No fall. Social History Tobacco use: Former smoker Quit 02/2022. Work: Occupation WORKING AT [employer]. Marital: Single PARENTS- GONZALO AND SEAN ALDRIDGE SON NIGEL 10/2018--FATHER NOT REALLY INVOLVED. engaged to Adam Bruno 10/06/22. Sexual: Sexually active. control method not specified. Allergies - No Known Allergies Family History Family history unchanged Review Of Systems Systemic: No edema. Head: No headache. Cardiovascular: No chest pain or discomfort. Pulmonary: No shortness of breath. Neurological: No dizziness. Physical Findings - Vitals taken 01/22/2023 02:23 pm BP-Sitting L 122/78 mmHg Pulse Rate-Sitting 81 bpm Respiration Rate 16 per min Temp-Temporal 97.1 F Height 64 in Weight 215 lbs 8 oz Body Mass Index 37 kg/m2 Body Surface Area 2 m2 Oxygen Saturation 99 % General Appearance: - Well-appearing. - Awake. - Alert. - Well developed. - Well nourished. - Well hydrated. - Active. - In no acute distress. Lungs: - Clear to auscultation. Cardiovascular: Heart Rate And Rhythm: - Normal. Heart Sounds: - Normal. Murmurs: - No murmurs were heard. Back: - No costovertebral angle tenderness. Abdomen: Visual Inspection: - Showed the abdomen was flat. Auscultation: - Bowel sounds were normal. Palpation: - Abdomen was soft. - No direct tenderness in the abdomen. - No direct suprapubic tenderness. - No mass was palpated in the abdomen. Liver: - Not enlarged. Spleen: - Not enlarged. Skin: - Normal. Tests - Test: URINALYSIS Report Date: 01/22/2023 Glucose NEGATIVE Normal Bilirubin NEGATIVE Normal Ketones NEGATIVE Normal Sp Pioneer NEGATIVE Normal Blood LARGE--PT ON PERIOD Abnormal pH 6.5 Normal Protein 30MG Abnormal Urobilinogen NEGATIVE Normal Nitrite NEGATIVE Normal Leukocytes NEGATIVE Normal Assessment - [N20.0 - Calculus of kidney] Nephrolithiasis Therapy - Education and instructions. Plan StartCited - Calculus of kidney In office procedures/*Clia Waived Labs: Urinalysis EndCited - Follow-up visit as needed with an office visit. Discussed referral to urology in the future if needed. Cont to drink plenty of water, urinate often. Call sooner if needed. ER if condition severe Practice Management Discharge medications reconciled with current medication list Review of medications documented; [[id number]] Established outpatient, medically appropriate H&P, low level decision making, 20-29 minutes. Care Team - LINDA SHERMAN RETAIL AND RESTAURANT - [employer] Worker [employer]
== END 2024-04-04 15:04 | disposition home or self-care (01) | DRG 807 ==
LOC: ANHOB2 04-03 20:03 → ANHLDR 04-07 10:35
PROVIDERS: Admitting Provider Obstetrics & Gynecology; Visit Provider Obstetrics & Gynecology
DX: O77.0 Labor and delivery complicated by meconium in amniotic fluid (principal); Z37.0 Single live birth; Z3A.40 40 weeks gestation of pregnancy; O69.81X0 Labor and delivery complicated by cord around neck, without compression, not applicable or unspecified; Z23 Encounter for immunization
CPT/HCPCS: 36415; 80053; 84550; 85014; 85018; 85025; 86592; 86703; 86850; 86900; 86901; 90471; 90656; A9270; G0008; G0432; J1756; J2590; J2795; J7050; J7120